=== PATIENT | female | born 1970 | race Caucasian/White ===

== ENCOUNTER 2022-11-14 14:10 | Emergency (ER) | payer OTHER, SELFPAY ==
[2022-11-14 14:24] VITALS: BP 126/84; PULSE 90; RESP 18; TEMP 36.4; O2SAT 94; BMI 34.9
--- NOTE | 2022-11-14 14:24 | ED.EXTPRO ---
HPI - Extremity Problem General Chief complaint: General Medical <TAN Crawford Last Filed: 11/14/22 14:27> Stated complaint: Infection in finger <TAN Crawford Last Filed: 11/14/22 14:27> Time Seen by Provider: 11/14/22 15:15 <TAN Crawford Last Filed: 11/14/22 14:27> History of Present Illness HPI Narrative: patient complains of redness pain and swelling to the tip of the left ring finger over several days, no fever no injury <TAN Molina Last Filed: 11/15/22 09:56> Related Data Home medications: Previous Rx's Medication Instructions Recorded cephalexin 500 mg tablet 500 mg PO QID 7 days #28 tabs 11/14/22 doxycycline hyclate 100 mg capsule 100 mg PO BID 7 days #14 caps 11/14/22 fluconazole 150 mg tablet 150 mg PO ONCE 1 day #1 tab 11/14/22 (Diflucan) <TAN Crawford Last Filed: 11/14/22 14:27> Allergies/Adverse reactions: Allergies Allergy/AdvReac Type Severity Reaction Status Date / Time codeine Allergy Intermediate Vomiting Verified 11/14/22 14:24 <TAN Crawford Last Filed: 11/14/22 14:27> Review of Systems Review of Systems: Positive for left ring her finger pain and swelling Negatives no fever no chills no dizziness no weakness no joint pain no joint swelling no numbness no tingling no paresthesias, no other skin rashes <TAN Molina Last Filed: 11/15/22 09:56> Yes all other systems are reviewed and are negative <TAN Molina Last Filed: 11/15/22 09:56> [facility] Past Medical History Source: nursing notes reviewed <TAN Molina Last Filed: 11/15/22 09:56> Social History Social History: Social History Advance Directives: No Advance Directives Information Provided: Yes <TAN Crawford Last Filed: 11/14/22 14:27> Physical Exam Vital Signs: Vital Signs: Last Vital Signs Temp 97.6 F 11/14/22 14:24 Pulse 90 11/14/22 14:24 Resp 18 11/14/22 14:24 BP 126/84 11/14/22 14:24 Pulse Ox 94 11/14/22 14:24 O2 Del Method 11/14/22 14:24 BMI result Body Mass Index 34.9 <TAN Crawford Last Filed: 11/14/22 14:27> Vital Signs: Last Vital Signs Temp 97.6 F 11/14/22 14:24 Pulse 90 11/14/22 14:24 Resp 18 11/14/22 14:24 BP 126/84 11/14/22 14:24 Pulse Ox 94 11/14/22 14:24 O2 Del Method 11/14/22 14:24 BMI result Body Mass Index 34.9 <TAN Molina Last Filed: 11/15/22 09:56> general appearance comfortable no distress Head is normocephalic atraumatic Neck is supple Respiratory no distress Extremities full range of motion x4 Left ring finger had a paronychia on the medial aspect of the left 4th finger with redness swelling fluctuance around the nail bed, the joints had full range of motion there was no impairment of any tendon function there was neurovascular intact <TAN Molina Last Filed: 11/15/22 09:56> Course Course Course Narrative: RME- 14:30PM - 51yoF presenting to the ED c c/o left ring finger paronychia that started approximately 3 days ago. Denies any other symptoms related to this. Plan: Patient will need I and D and antibiotics. She did not want to do it in triage she went to topical lidocaine <TAN Crawford Last Filed: 11/14/22 14:27> RME- 14:30PM - 51yoF presenting to the ED c c/o left ring finger paronychia that started approximately 3 days ago. Denies any other symptoms related to this. Plan: Patient will need I and D and antibiotics. She did not want to do it in triage she went to topical lidocaine patient with left ring finger paronychia no systemic symptoms no fever Procedure note digital block was done with 6 cc of 1% lidocaine with good anesthesia Left 4th finger paronychia was cleansed with Betadine Nail bed was lifted with discharge of a good quantity of pus Bandage was applied no packing was placed <TAN Molina Last Filed: 11/15/22 09:56> Medications Administered Discontinued Medications Generic Name Dose Route Start Last Admin Trade Name Jeanine PRN Reason Stop Dose Admin Cephalexin HCl 500 mg 11/14/22 16:33 11/14/22 16:37 Cephalexin 500 Mg Capsule PO 11/14/22 16:34 500 mg ONCE ONE Administration Doxycycline Monohydrate 100 mg 11/14/22 15:18 11/14/22 15:23 Doxycycline Monohydrate 100 Mg Capsule PO 11/14/22 15:19 100 mg ONCE ONE Administration Lidocaine HCl 2 ml 11/14/22 15:12 11/14/22 15:25 Lidocaine Hcl 1 % Mpf 2 Ml Vial INFILTRATI 11/14/22 15:13 2 ml ONCE ONE Administration Lidocaine HCl 2 ml 11/14/22 15:16 11/14/22 15:25 Lidocaine Hcl 1 % Mpf 2 Ml Vial INFILTRATI 11/14/22 15:17 2 ml ONCE ONE Administration Lidocaine HCl 2 ml 11/14/22 15:16 11/14/22 15:25 Lidocaine Hcl 1 % Mpf 2 Ml Vial INFILTRATI 11/14/22 15:17 2 ml ONCE ONE Administration Lidocaine HCl 2 ml 11/14/22 15:16 11/14/22 15:25 Lidocaine Hcl 1 % Mpf 2 Ml Vial INFILTRATI 11/14/22 15:17 2 ml ONCE ONE Administration Lidocaine HCl 2 ml 11/14/22 15:16 11/14/22 15:25 Lidocaine Hcl 1 % Mpf 2 Ml Vial INFILTRATI 11/14/22 15:17 2 ml ONCE ONE Administration <TAN Crawford - Last Filed: 11/14/22 14:27> Medications Administered Discontinued Medications Generic Name Dose Route Start Last Admin Trade Name Jeanine PRN Reason Stop Dose Admin Cephalexin HCl 500 mg 11/14/22 16:33 11/14/22 16:37 Cephalexin 500 Mg Capsule PO 11/14/22 16:34 500 mg ONCE ONE Administration Doxycycline Monohydrate 100 mg 11/14/22 15:18 11/14/22 15:23 Doxycycline Monohydrate 100 Mg Capsule PO 11/14/22 15:19 100 mg ONCE ONE Administration Lidocaine HCl 2 ml 11/14/22 15:12 11/14/22 15:25 Lidocaine Hcl 1 % Mpf 2 Ml Vial INFILTRATI 11/14/22 15:13 2 ml ONCE ONE Administration Lidocaine HCl 2 ml 11/14/22 15:16 11/14/22 15:25 Lidocaine Hcl 1 % Mpf 2 Ml Vial INFILTRATI 11/14/22 15:17 2 ml ONCE ONE Administration Lidocaine HCl 2 ml 11/14/22 15:16 11/14/22 15:25 Lidocaine Hcl 1 % Mpf 2 Ml Vial INFILTRATI 11/14/22 15:17 2 ml ONCE ONE Administration Lidocaine HCl 2 ml 11/14/22 15:16 11/14/22 15:25 Lidocaine Hcl 1 % Mpf 2 Ml Vial INFILTRATI 11/14/22 15:17 2 ml ONCE ONE Administration Lidocaine HCl 2 ml 11/14/22 15:16 11/14/22 15:25 Lidocaine Hcl 1 % Mpf 2 Ml Vial INFILTRATI 11/14/22 15:17 2 ml ONCE ONE Administration <TAN Molina - Last Filed: 11/15/22 09:56> Discharge Plan Discharge Clinical Impression: Paronychia of finger <TAN Crawford Last Filed: 11/14/22 14:27> Patient Disposition: Home, Self-Care <TAN Crawford - Last Filed: 11/14/22 14:27> Additional Instructions: we drained the pus from the infection It is okay to soak it in Epsom salts or warm water, change the bandage twice a day Take the antibiotics as directed and it is a good idea to take probiotics with the antibiotic to prevent antibiotic associated diarrhea Return any time for spreading redness, worse pain and swelling, red stripe up the arm, any worse condition or concerns <TAN Crawford Last Filed: 11/14/22 14:27> Prescriptions: New cephalexin 500 mg tablet 500 mg PO QID 7 Days Qty: 28 0RF doxycycline hyclate 100 mg capsule 100 mg PO BID 7 Days Qty: 14 0RF fluconazole [Diflucan] 150 mg tablet 150 mg PO ONCE 1 Days Qty: 1 0RF Rx Instructions: use if needed for yeast infection <TAN Crawford Last Filed: 11/14/22 14:27> Interventions: ED Discharge Assessment Last Done: 11/14/22 16:41 <TAN Crawford Last Filed: 11/14/22 14:27> Discharge Date/Time: 11/14/22 16:41 <TAN Crawford - Last Filed: 11/14/22 14:27>
[2022-11-14] MEDS: Doxycycline Monohydrate 100 MG CAPSULE PO (15:23)
[2022-11-14] MEDS: Lidocaine HCl 1 % MPF 2 ML VIAL INFILTRATI ×5 (15:25)
--- NOTE | 2022-11-14 16:32 | PC.NURSE ---
PA performed drainage of infection. pt tolerated it well. put a non stick dressing on and gave her sahara gema.
[2022-11-14] MEDS: cephALEXin 500 MG CAPSULE PO (16:37)
== END 2022-11-14 16:41 | disposition home or self-care (01) ==
PROVIDERS: Emergency Provider Emergency Medicine; PCP Family Medicine
DX: L03.012 Cellulitis of left finger (principal)
CPT/HCPCS: 10060; 99283; 99284

== ENCOUNTER → 2024-05-23 07:47 | Outpatient (BNVA) | payer OTHER, SELFPAY | PROVIDERS: PCP Family Medicine; Visit Provider Physician Assistant Surgical ==

== ENCOUNTER 2024-07-17 08:00 | Outpatient (AMB) | payer OTHER, SELFPAY ==
--- NOTE | 2024-07-17 08:14 | MHC.OFFVISWM ---
VS Expanded 07/17/24 08:30 Height 5 ft 1 in Weight 197 lb 6 oz BMI 37.3 Body Fat % 41.5 Body Fat Mass 82 Fat Free Mass 115.6 Visceral Fat Rating 12 Body Water % 41.6 Body Water Mass 82.2 Basal Metabolic Rate/Score 1,595 Intake Visit Reasons: TV [employer] SWL vs MWL BMI 37.3 Allergies codeine Allergy (Intermediate, Verified 07/17/24 08:15) Vomiting Medication List - Last Reconciled 07/17/24 by Charly Wallaec MD amlodipine 10 mg PO DAILY atorvastatin 10 mg PO DAILY CPAP (CPAP Machine/Device) As directed escitalopram oxalate 20 mg PO DAILY losartan 25 mg PO DAILY omeprazole 20 mg PO DAILY HPI HPI TV [employer] SWL vs MWL BMI 37.3: Details: Start time: 8.08am, End time: 8.53am ?I spent 40 minutes speaking with the patient on the phone plus an additional 5 minutes reviewing and updating records for a total of 45 minutes HPI Comments Details: Previous weight loss efforts: Weight Watchers, Sebastian Naidu, [employer] soup, self diets Wakes up: 6am, sleeps: 11pm Breakfast: skips Lunch: 1pm (peanut butter crackers, pizza) Dinner: 8pm ([employer], Fast food) Snacks: 10am (peanut butter crackers), 4pm (candy bar), occ ice cream/popcorn after dinner Exercise: Mini treadmill at work (30min/day) Fluids: Coffee 40-50oz/d (black), tea: occasionally, soda: Coke regular, juice: none, ETOH: rarely PFSH Medical History (Updated 07/17/24 @ 08:32 by Charly Wallace MD) Anxiety Depression DJD (degenerative joint disease) GERD (gastroesophageal reflux disease) Prediabetes Hyperlipidemia Sleep apnea treated with continuous positive airway pressure (CPAP) Hypertension Obesity Surgical History (Updated 05/23/24 @ 10:02 by Janay Kyle CMA) Hx of colonoscopy History of back surgery Family History (Updated 05/23/24 @ 10:04 by Janay Kyle CMA) Mother FH: kidney cancer Social History (Updated 05/23/24 @ 10:03 by Janay Kyle CMA) Alcohol intake: current Alcohol intake frequency: holidays/special occasions only Alcohol type: wine Patient Tobacco Use Status: Current everyday Tobacco user Cigarettes Per Day: 10 Telehealth Telehealth Telehealth Platform: Telephone Location of provider rendering services: practice address Location of patient: address on file Patient Identification confirmed using: Name, : Yes Telehealth method: voice only Patient verbally consented to treatment: Yes Patient verbally consented to billing insurance company: Yes Patient informed of any privacy concerns related to visit: Yes Minutes spent on Phone/Video with Pt.: 45 Assessment & Plan Assessment & Plan (1) Obesity: Code(s): E66.9 - Obesity, unspecified Category: Medical Qualifiers: Obesity type: due to excess calories Obesity classification: adult class 2 (BMI 35 - 39.9) Serious obesity comorbidity presence: with serious comorbidity Body mass index: BMI 37.0-37.9 Qualified Code(s): E66.01 - Morbid (severe) obesity due to excess calories; Z68.37 - Body mass index [BMI] 37.0-37.9, adult Plan: 1.? Plan for lap sleeve gastrectomy. If diaphragmatic or ventral hernias are present at time of surgery, these will be repaired laparoscopically as well. Risks and complications include possible conversion to an open procedure, anastomotic leak, bleeding requiring transfusion, small bowel obstruction, , DVT and pulmonary embolism, cardiac, or pulmonary complications, as long term acute care registered nurse complications such as anastomotic ulcer, insufficient weight loss and vitamin deficiencies. I emphasized the importance of close follow-up, adherence to instructions and good communication. 2. You will receive a link of our software tab to generate an individualized nutritional and exercise plan specific for you. Please send me a screenshot of the plans you will generate Meal to include lean meat (beef, fish, pork, turkey, chicken), or cook islander yogurt, or egg whites, or beans with a salad with olive oil and fruits (berries, pears, apples, kiwi). Avoid salt, breads, potatoes, rice, pasta, desserts. ?3. If you choose shakes, each shake would be drunk slowly, like coffee in a period of 2 hours. ?4. If you choose bars, cut each bar in 4 pieces and eat each piece in 30min ?to make each bar last 2 hours. ?5. I emphasized the importance of measuring accurately the food portion and measure it when serving the food in plate ?6. The meal portions include a specific number of forks of meat and salad. You always eat the meat portion but you can replace up to half of salad/vegetables portion with rice, potatoes or pasta, or a fruit ?if you like. The less you do it the better weight loss will be. ?7. One full-size fork is what it can be scooped on the fork without falling aside and not what can be bit with the fork. Use regular forks like those you find in a typical restaurant. ?8.? Please send me weight measurements as soon as possible and then once a week. Always include your diet and exercise plan. 9. The best choice would be to purchase a stationary bike, elliptical or treadmill at home that can track calories. Let me know if you do so I can give you an exercise plan. ?10.?It is important of avoiding and for at least 18 months postoperatively and has been discussed at the infosession. ?11. Goal is to lose at least 1.5-2lbs per week ?12. Goal to lose 10% of your weight before surgery, which is about 20lbs. Ultimate weight goal: 177lbs before surgery 13. Please follow the diet plan exactly without any change. If you don't like something about the plan or you feel hungry you need to communicate with me so I can help you revise the plan. You should not change the plan yourself. 14. To be scheduled for EGD due to history of GERD. The possibility of biopsies was discussed. Patient needs to avoid use of NSAIDs and aspirin for 1 week prior to EGD. Risks of perforation and bleeding was discussed with the patient. This will be an outpatient procedure with IV sedation. Orders: Orders IRON PROFILE Today E66.9 - Obesity, unspecified, E78.5 - Hyperlipidemia, unspecified, G47.30 - Sleep apnea, unspecified, I10 - Essential (primary) hypertension, K21.9 - Gastro-esophageal reflux disease without esophagitis, R73.03 - Prediabetes Comprehensive Met. Panel Today E66.9 - Obesity, unspecified, E78.5 - Hyperlipidemia, unspecified, G47.30 - Sleep apnea, unspecified, I10 - Essential (primary) hypertension, K21.9 - Gastro-esophageal reflux disease without esophagitis, R73.03 - Prediabetes Vitamin B12 and Folate Today E66.9 - Obesity, unspecified, E78.5 - Hyperlipidemia, unspecified, G47.30 - Sleep apnea, unspecified, I10 - Essential (primary) hypertension, K21.9 - Gastro-esophageal reflux disease without esophagitis, R73.03 - Prediabetes Zinc Today E66.9 - Obesity, unspecified, E78.5 - Hyperlipidemia, unspecified, G47.30 - Sleep apnea, unspecified, I10 - Essential (primary) hypertension, K21.9 - Gastro-esophageal reflux disease without esophagitis, R73.03 - Prediabetes Vitamin B1 Today E66.9 - Obesity, unspecified, E78.5 - Hyperlipidemia, unspecified, G47.30 - Sleep apnea, unspecified, I10 - Essential (primary) hypertension, K21.9 - Gastro-esophageal reflux disease without esophagitis, R73.03 - Prediabetes Vitamin A Today E66.9 - Obesity, unspecified, E78.5 - Hyperlipidemia, unspecified, G47.30 - Sleep apnea, unspecified, I10 - Essential (primary) hypertension, K21.9 - Gastro-esophageal reflux disease without esophagitis, R73.03 - Prediabetes US abdomen comp w elastography Today E66.9 - Obesity, unspecified, E78.5 - Hyperlipidemia, unspecified, G47.30 - Sleep apnea, unspecified, I10 - Essential (primary) hypertension, K21.9 - Gastro-esophageal reflux disease without esophagitis, R73.03 - Prediabetes XR chest 2V Today E66.9 - Obesity, unspecified, E78.5 - Hyperlipidemia, unspecified, G47.30 - Sleep apnea, unspecified, I10 - Essential (primary) hypertension, K21.9 - Gastro-esophageal reflux disease without esophagitis, R73.03 - Prediabetes ECG 12 lead EKG Today E66.9 - Obesity, unspecified, E78.5 - Hyperlipidemia, unspecified, G47.30 - Sleep apnea, unspecified, I10 - Essential (primary) hypertension, K21.9 - Gastro-esophageal reflux disease without esophagitis, R73.03 - Prediabetes Insulin Today E66.9 - Obesity, unspecified, E78.5 - Hyperlipidemia, unspecified, G47.30 - Sleep apnea, unspecified, I10 - Essential (primary) hypertension, K21.9 - Gastro-esophageal reflux disease without esophagitis, R73.03 - Prediabetes Hemoglobin A1c Today E66.9 - Obesity, unspecified, E78.5 - Hyperlipidemia, unspecified, G47.30 - Sleep apnea, unspecified, I10 - Essential (primary) hypertension, K21.9 - Gastro-esophageal reflux disease without esophagitis, R73.03 - Prediabetes H Pylori Breath Test Today E66.9 - Obesity, unspecified, E78.5 - Hyperlipidemia, unspecified, G47.30 - Sleep apnea, unspecified, I10 - Essential (primary) hypertension, K21.9 - Gastro-esophageal reflux disease without esophagitis, R73.03 - Prediabetes Complete Blood Count Auto Diff Today E66.9 - Obesity, unspecified, E78.5 - Hyperlipidemia, unspecified, G47.30 - Sleep apnea, unspecified, I10 - Essential (primary) hypertension, K21.9 - Gastro-esophageal reflux disease without esophagitis, R73.03 - Prediabetes Lipid Panel Today E66.9 - Obesity, unspecified, E78.5 - Hyperlipidemia, unspecified, G47.30 - Sleep apnea, unspecified, I10 - Essential (primary) hypertension, K21.9 - Gastro-esophageal reflux disease without esophagitis, R73.03 - Prediabetes C Reactive Protein Today E66.9 - Obesity, unspecified, E78.5 - Hyperlipidemia, unspecified, G47.30 - Sleep apnea, unspecified, I10 - Essential (primary) hypertension, K21.9 - Gastro-esophageal reflux disease without esophagitis, R73.03 - Prediabetes TSH reflex Free T4 Today E66.9 - Obesity, unspecified, E78.5 - Hyperlipidemia, unspecified, G47.30 - Sleep apnea, unspecified, I10 - Essential (primary) hypertension, K21.9 - Gastro-esophageal reflux disease without esophagitis, R73.03 - Prediabetes Ferritin Today E66.9 - Obesity, unspecified, E78.5 - Hyperlipidemia, unspecified, G47.30 - Sleep apnea, unspecified, I10 - Essential (primary) hypertension, K21.9 - Gastro-esophageal reflux disease without esophagitis, R73.03 - Prediabetes Vitamin D 25-OH Total Today E66.9 - Obesity, unspecified, E78.5 - Hyperlipidemia, unspecified, G47.30 - Sleep apnea, unspecified, I10 - Essential (primary) hypertension, K21.9 - Gastro-esophageal reflux disease without esophagitis, R73.03 - Prediabetes FL upper GI w air Today E66.9 - Obesity, unspecified, E78.5 - Hyperlipidemia, unspecified, G47.30 - Sleep apnea, unspecified, I10 - Essential (primary) hypertension, K21.9 - Gastro-esophageal reflux disease without esophagitis, R73.03 - Prediabetes Referrals Nutrition/Dietitian Referral E66.9 - Obesity, unspecified, E78.5 - Hyperlipidemia, unspecified, G47.30 - Sleep apnea, unspecified, I10 - Essential (primary) hypertension, K21.9 - Gastro-esophageal reflux disease without esophagitis, R73.03 - Prediabetes Behavioral Health Referral E66.9 - Obesity, unspecified, E78.5 - Hyperlipidemia, unspecified, G47.30 - Sleep apnea, unspecified, I10 - Essential (primary) hypertension, K21.9 - Gastro-esophageal reflux disease without esophagitis, R73.03 - Prediabetes
[2024-07-17 08:30] VITALS: BMI 37.3
== END 2024-07-17 08:53 | disposition home or self-care (01) ==
LOC: HO.HBS 08:00
PROVIDERS: PCP Family Medicine; Visit Provider Surgery
DX: E66.01 Morbid (severe) obesity due to excess calories (principal); Z68.37 Body mass index [BMI] 37.0-37.9, adult
CPT/HCPCS: 99204

== ENCOUNTER → 2024-07-17 08:00 | Outpatient (BNVA) | payer OTHER, SELFPAY | PROVIDERS: PCP Family Medicine; Visit Provider Surgery ==

== ENCOUNTER 2024-07-24 08:08 | Outpatient (REF) | payer OTHER, SELFPAY ==
--- NOTE | ~2024-07-24 | XR_ITS ---
EXAMINATION: XR CHEST, 2 VIEWS CLINICAL INFORMATION: Obesity. Preoperative. COMPARISON: None. TECHNIQUE: PA and lateral views of the chest were obtained. FINDINGS: Lungs are clear. No consolidation, pneumothorax, or pleural effusion. Cardiac and mediastinal contours are normal. Pulmonary vasculature is unremarkable. Trachea is midline. Osseous structures are unremarkable. XR/XR chest 2V IMPRESSION: Normal chest radiographs. Electronically signed by: Ranjit Singh MD 08/14/2024 07:36 PM EDT
--- NOTE | ~2024-07-24 | US_ITS ---
EXAMINATION: US COMPLETE ABDOMEN WITH LIVER ELASTOGRAPHY CLINICAL INFORMATION: Obesity. COMPARISON: None available. TECHNIQUE: Real-time imaging of the abdominal viscera. Noninvasive ultrasound liver fibrosis assessment is performed using Javy ElastPQ point quantification shear wave elastography (pSWE) with a C5-2 MHz transducer. Multiple elastography samples are obtained. FINDINGS: PANCREAS: Normal. The visualized pancreatic head and body are normal in appearance. The remainder of the pancreas is obscured from visualization by the overlying bowel gas. ABDOMINAL AORTA: The proximal, middle, and distal aortic segments are normal in caliber. INFERIOR VENA CAVA: Visualized portions are normal. LIVER: The liver demonstrates increased echogenicity consistent with steatosis. There is focal fatty sparing near the gallbladder. The liver demonstrates normal size, contour and echogenicity. No focal lesion or intrahepatic biliary duct dilatation. The right lobe measures 14.4 cm in length. The left lobe measures 9.2 cm in length. Portal flow is towards the liver (hepatopetal). Shear wave liver elastography median stiffness is 1.15 m/s (reference: normal median stiffness is 1.3 m/s or less). IQR/median stiffness to assess sampling precision is 0.14 (reference: good quality data set is IQR/median stiffness of 0.15 or less). GALLBLADDER: Normal. The gallbladder is physiologically distended without evidence of stones, sludge, polyps, wall thickening or pericholecystic fluid. COMMON BILE DUCT: Normal in caliber measuring 0.5 cm in diameter. RIGHT KIDNEY: Normal. No hydronephrosis. No renal calculi or focal parenchymal lesions. The kidney measures 11.4 cm in maximum dimension. LEFT KIDNEY: Normal. No hydronephrosis. No renal calculi or focal parenchymal lesions. The kidney measures 11.1 cm in maximum dimension. SPLEEN: Normal. The spleen measures 10.9 cm in maximum dimension. FREE FLUID: None. US/US abdomen comp w elastography IMPRESSION: 1. Echogenic liver suggesting steatosis. 2. Liver Elastography: Measurements are consistent with a high probability of normal liver stiffness. REFERENCE: Society of Radiologists in Ultrasound Liver Stiffness Thresholds (2019): LIVER STIFFNESS THRESHOLDS: *Liver Stiffness equal or less than 1.3 m/s: High probability of being normal. *Liver Stiffness less than 1.7 m/s: In the absence of other known clinical signs, rules out compensated advanced chronic liver disease. *Liver Stiffness 1.7-2.1 m/s: Suggestive of compensated advanced chronic liver disease but need further test for confirmation. *Liver Stiffness over 2.1 m/s: Rules in compensated advanced chronic liver disease. *Liver Stiffness over 2.4 m/s: Suggestive of clinically significant portal hypertension. QUALITY OF DATA SET: *IQR/Median value equal or less than 0.15 implies a quality data set. *IQR/Median value over 0.15 implies a poor quality data set. SIGNIFICANT CHANGE FROM PRIOR EXAM: Significant change if liver stiffness measurement is 10% or greater from prior exam. OTHER CONSIDERATIONS: The stage of liver fibrosis may be overestimated in the setting of acute hepatitis, liver inflammation, elevated liver function tests, hepatic vascular congestion, obstructive cholestasis, non-fasting state, and infiltrative diseases such as amyloidosis and lymphoma. In some patients with NAFLD, the liver stiffness thresholds for compensated advanced chronic liver disease may be lower. In causes other than viral hepatitis and NAFLD, liver stiffness thresholds are not well established. Electronically signed by: Talha Baker MD 08/03/2024 09:55 PM EDT
--- NOTE | 2024-07-24 08:50 | ECG_ITS ---
Test Reason : OBESITY Blood Pressure : / mmHG Vent. Rate : 058 BPM Atrial Rate : 058 BPM P-R Int : 220 ms QRS Dur : 094 ms QT Int : 426 ms P-R-T Axes : 072 035 055 degrees QTc Int : 418 ms Sinus bradycardia with 1st degree A-V block Otherwise normal ECG No previous ECGs available Referred By: Charly Wallace Electronically Signed By:KUN ANGUIANO
== END 2024-07-24 08:09 | disposition home or self-care (01) ==
LOC: HO.US 08:08
PROVIDERS: PCP Family Medicine; Visit Provider Surgery
DX: E66.9 Obesity, unspecified (principal); K21.9 Gastro-esophageal reflux disease without esophagitis; R73.03 Prediabetes; E78.5 Hyperlipidemia, unspecified; I10 Essential (primary) hypertension; G47.30 Sleep apnea, unspecified
CPT/HCPCS: 71046; 76700; 76981; 93005

== ENCOUNTER 2024-08-05 10:16 | Outpatient (REF) | payer OTHER, SELFPAY ==
[2024-08-05 10:49] LABS: MANUAL DIFF FLAG NO
[2024-08-05 11:11] LABS: Basophils Absolute Auto 0.1 X10*3/uL (0.0-0.2); Eosinophils Absolute Auto 0.1 X10*3/uL (0.0-0.4); Eosinophils Percent Auto 2.2 % (0-4); Hematocrit 41.3 % (37.0-47.0); Hemoglobin 14.3 g/dl (12.0-16.0); Imm Gran Abs Auto 0.02 X10*3/uL (0.00-0.03); Imm Gran Pct Auto 0.3 % (0.0-0.4); Lymphocytes Absolute Auto 1.9 X10*3/uL (1.2-4.9); Lymphocytes Percent Auto 32.2 % (20-40); Mean Corpuscular HGB Conc 34.6 g/dl (31.0-35.0); Mean Corpuscular Hemoglobin 31.6 pg (27.0-33.0); Mean Corpuscular Volume 91.2 fL (80.0-98.0); Mean Platelet Volume 11.3 fL (9.4-12.3); Monocytes Absolute Auto 0.3 X10*3/uL (0.1-1.2); Monocytes Percent Auto 4.9 % (2-11); Neutrophils Absolute Auto 3.6 x10*3/uL (2.0-8.3); Neutrophils Percent Auto 59.4 % (45-73); Platelet Count 191 X10*3/uL (160-400); Red Blood Count 4.53 X10*6/uL (4.20-5.50); Red Cell Distribution Width 12.9 % (11.0-16.0)
[2024-08-05 11:35] LABS: Estimated Average Glucose 111 mg/dL; Hemoglobin A1c % 5.5 % (<6.0)
[2024-08-05 12:00] LABS: Alanine Aminotransferase 23 U/L (0-31); Albumin Level 4.4 g/dL (3.5-5.0); Alkaline Phosphatase 108 U/L (39-117); Anion Gap 12 (12-20); Aspartate Amino Transferase 15 U/L (5-31); Bilirubin Total 0.3 mg/dL (0.0-1.0); Blood Urea Nitrogen 13 mg/dL (9-16); C Reactive Protein 0.14 mg/dL (< or = 0.50); Calcium 9.6 mg/dL (8.4-10.2); Carbon Dioxide 26 mmol/L (22-29); Chloride 108 mmol/L (96-108); Cholesterol 159 mg/dL (<200); Estimated Glomerular Filt Rate > 60; Glucose Random 115 mg/dL (60-115); HDL Cholesterol 42 mg/dL (>40); Iron 50 mcg/dL (30-160); LDL Cholesterol Calculated 102 mg/dL (<100); Percent Iron Saturation 20 % (15-50); Potassium 4.4 mmol/L (3.3-5.1); Sodium 142 mmol/L (135-145); Total Iron Binding Capacity 253 mcg/dL (228-428); Total Protein 7.1 g/dL (6.5-8.0); Triglycerides 76 mg/dL (<150); Unsaturated Iron Binding 203 ug/dL
[2024-08-05 12:08] LABS: Ferritin 114 ng/mL (10-250); Insulin 20 uU/mL (2-29); TSH reflex Free T4 0.83 uIU/mL (0.32-4.0); Vitamin D 25-OH Total 40.9 ng/mL (>30)
[2024-08-05 12:17] LABS: Folate 12.9 ng/mL (> or = 4.0); Vitamin B12 714 pg/mL (200-900)
[2024-08-10 00:34] LABS: Vitamin A 57 mcg/dL (38-98)
[2024-08-10 16:39] LABS: Vitamin B1 11 nmol/L (8-30)
== END 2024-08-05 10:17 | disposition home or self-care (01) ==
LOC: HO.LAB 10:16
PROVIDERS: PCP Family Medicine; Visit Provider Surgery
DX: E66.9 Obesity, unspecified (principal); I10 Essential (primary) hypertension; G47.30 Sleep apnea, unspecified; E78.5 Hyperlipidemia, unspecified; R73.03 Prediabetes; K21.9 Gastro-esophageal reflux disease without esophagitis
CPT/HCPCS: 36415; 80053; 80061; 82306; 82607; 82728; 82746; 83036; 83525; 83540; 84425; 84443; 84590; 84630; 85025; 86140

== ENCOUNTER → 2024-08-14 10:05 | Outpatient (BNVA) | payer OTHER, SELFPAY | PROVIDERS: PCP Family Medicine; Visit Provider Counselor Mental Health ==

== ENCOUNTER → 2024-08-14 10:05 | Outpatient (AMB) | payer OTHER, SELFPAY ==
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
== END ==
LOC: HO.HBST 10:05
PROVIDERS: PCP Family Medicine; Visit Provider Counselor Mental Health
DX: F41.9 Anxiety disorder, unspecified (principal); F32.A Depression, unspecified
CPT/HCPCS: 90791

== ENCOUNTER → 2024-08-30 08:10 | Outpatient (AMB) | payer OTHER, SELFPAY ==
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
== END ==
LOC: HO.HBST 08:10
PROVIDERS: PCP Family Medicine; Visit Provider Counselor Mental Health
DX: F41.9 Anxiety disorder, unspecified (principal); F32.A Depression, unspecified
CPT/HCPCS: 90837

== ENCOUNTER → 2024-08-30 08:10 | Outpatient (BNVA) | payer OTHER, SELFPAY | PROVIDERS: PCP Family Medicine; Visit Provider Counselor Mental Health ==

== ENCOUNTER 2024-08-31 10:30 | Outpatient (AMB) | payer OTHER, SELFPAY ==
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
[2024-08-31 10:38] VITALS: BMI 35.0
== END 2024-08-31 11:07 | disposition home or self-care (01) ==
LOC: HO.HBS 10:44
PROVIDERS: PCP Family Medicine; Visit Provider Physician Assistant Surgical
DX: E66.01 Morbid (severe) obesity due to excess calories (principal); Z68.37 Body mass index [BMI] 37.0-37.9, adult
CPT/HCPCS: 99213

== ENCOUNTER → 2024-08-31 10:30 | Outpatient (BNVA) | payer OTHER, SELFPAY | PROVIDERS: PCP Family Medicine; Visit Provider Physician Assistant Surgical ==

== ENCOUNTER 2024-09-05 09:07 | Day surgery (SDC) | payer OTHER, SELFPAY ==
--- NOTE | 2024-09-01 13:40 | P.CONAN_ITS ---
Documented by User: Guera Nowak NP 09/01/24 13:40 HPI - Anesthesia Eval Consult details Narrative: 53yo F for Upper Endoscopy PMFSH Active Problems Active Problems: All Active Problems Anxiety (Acute) Depression (Acute) DJD (degenerative joint disease) (Acute) GERD (gastroesophageal reflux disease) (Acute) Prediabetes (Acute) Hyperlipidemia (Acute) Sleep apnea treated with continuous positive airway pressure (CPAP) (Acute) Hypertension (Acute) Obesity (Acute) Past Medical History Medical History Anxiety Depression DJD (degenerative joint disease) GERD (gastroesophageal reflux disease) Prediabetes Hyperlipidemia Sleep apnea treated with continuous positive airway pressure (CPAP) Hypertension Obesity Family History Family History Mother FH: kidney cancer Surgical History Surgical History Hx of colonoscopy History of back surgery Social History Social History Alcohol intake: current Alcohol intake frequency: does not drink Alcohol type: wine Patient Tobacco Use Status: Current everyday Tobacco user Tobacco use type: Cigarette and Smokeless Tobacco Cigarettes Per Day: 2 Smoked in Last 30 Days: Yes Second Hand Smoke Exposure: No Use of substances other than those prescribed or required for medical reasons: Yes Substance Use Frequency: Daily Have you been hit, kicked, punched, or otherwise hurt by someone within the past year? If so, by whom?: No Are you DNR?: No Advance Directives: No Advance Directives Information Provided: Yes Advance Directives on File: No Recently lost weight without trying: No Eating poorly because of decreased appetite: No Nutrition Risks: No Nutritional Risk Patient : No : No Poor oral hygiene: No Meds Allergies Allergy/AdvReac Type Severity Reaction Status Date / Time codeine Allergy Intermediate Vomiting Verified 07/17/24 08:15 Home Medications ?Medication ?Instructions ?Recorded ?Confirmed ?Last Taken ?Type escitalopram oxalate 20 mg tablet 20 mg PO DAILY 05/23/24 09/05/24 Unknown History CPAP (CPAP Machine/Device) 06/19/24 09/05/24 Unknown History amlodipine 10 mg tablet 10 mg PO DAILY 06/19/24 09/05/24 Unknown History atorvastatin 10 mg tablet 10 mg PO DAILY 06/19/24 09/05/24 Unknown History losartan 25 mg tablet 25 mg PO DAILY 06/19/24 09/05/24 Unknown History omeprazole 20 mg capsule,delayed 20 mg PO DAILY 06/19/24 09/05/24 Unknown History release Assessment and Plan Assessment Anesthesia Assessment: Chart Reviewed Documented by User: Rajani Reardon MD 09/05/24 11:02 [facility] Past Medical History Medical History Anxiety Depression DJD (degenerative joint disease) GERD (gastroesophageal reflux disease) Prediabetes Hyperlipidemia Sleep apnea treated with continuous positive airway pressure (CPAP) Hypertension Obesity Family History Family History Mother FH: kidney cancer Family history of problems with anesthesia: No Surgical History Surgical History Hx of colonoscopy History of back surgery History of Problems with Anesthesia: No Social History Social History Alcohol intake: current Alcohol intake frequency: does not drink Alcohol type: wine Patient Tobacco Use Status: Current everyday Tobacco user Tobacco use type: Cigarette and Smokeless Tobacco Cigarettes Per Day: 2 Smoked in Last 30 Days: Yes Second Hand Smoke Exposure: No Use of substances other than those prescribed or required for medical reasons: Yes Substance Use Frequency: Daily Have you been hit, kicked, punched, or otherwise hurt by someone within the past year? If so, by whom?: No Are you DNR?: No Advance Directives: No Advance Directives Information Provided: Yes Advance Directives on File: No Recently lost weight without trying: No Eating poorly because of decreased appetite: No Nutrition Risks: No Nutritional Risk Patient : No : No Poor oral hygiene: No Meds Allergies Allergy/AdvReac Type Severity Reaction Status Date / Time codeine Allergy Intermediate Vomiting Verified 07/17/24 08:15 Home Medications ?Medication ?Instructions ?Recorded ?Confirmed ?Last Taken ?Type escitalopram oxalate 20 mg tablet 20 mg PO DAILY 05/23/24 09/05/24 Unknown History CPAP (CPAP Machine/Device) 06/19/24 09/05/24 Unknown History amlodipine 10 mg tablet 10 mg PO DAILY 06/19/24 09/05/24 Unknown History atorvastatin 10 mg tablet 10 mg PO DAILY 06/19/24 09/05/24 Unknown History losartan 25 mg tablet 25 mg PO DAILY 06/19/24 09/05/24 Unknown History omeprazole 20 mg capsule,delayed 20 mg PO DAILY 06/19/24 09/05/24 Unknown History release Exam Airway Mallampati Class: II TM Dist: >3cm Neck ROM: Full Heart: rrr Assessment and Plan Assessment Anesthesia Assessment: Anesthesia Plan Discussed Final Anesthetic Review Family History of Problems with Anesthesia: No History of Problems with Anesthesia: No NPO: Yes ASA Class: III Final Preanesthetic Review: No Changes in Pt Med Stat, Meds/Allgs Chart Reviewed, Consent Obtained/Reviewed and Anes Risks/Benef Reviewed Patient Risk: Intermediate Procedure Risk: Low Anesthetic Plan Anesthetic Plan: MAC: Disposition: Standard PACU
[2024-09-05 10:04] VITALS: BMI 35.0
[2024-09-05 10:08] VITALS: BP 125/72; PULSE 61; RESP 16; TEMP 37.1; O2SAT 95
[2024-09-05] MEDS: Lactated Ringers 1,000 ML 80 ML IVCONT (10:09)
--- NOTE | 2024-09-05 10:10 | P.HPSUR_ITS ---
Pre-Procedural Eval Section A - 24 Hr Update-Section A only Date of Service: 09/05/24 The patient is an INPATIENT: No The patient has been examined within 24 hours of the surgical procedure. The History & Physical has been completed within 30 days and I have reviewed it.: No Section B - Complete if H&P > 30 days Chief Complaint: Morbid (severe) obesity due to excess calories Details of Present Illness: GERD Relevant Family History (Specify if Yes): No Relevant Social History: None Present Medications: None Medical History: No relevant PMH History of Previous Operations: No relevant previous surgery Allergies: Allergies Allergy/AdvReac Type Severity Reaction Status Date / Time codeine Allergy Intermediate Vomiting Verified 07/17/24 08:15 Review of Systems Sugical H&P ROS: Negative: Constitution, Cardiovascular, Respiratory, Neurological, Psychiatric, Hem-Onc, Allergic/Immunologic, Gastrointestinal, Genitourinary, Musculoskeletal, Integumentary, Endocrine and Eyes/Ears/Nose/Th roat Exam Surgical H&P Exam: Normal: HEENT, Normal: Heart, Normal: Lungs, Normal: Extremities, Normal: Abdomen, Normal: Skin and Normal: Neurological Plan Diagnosis/Plan: Unchanged (EGD to assess etiology of GERD. Risks of bleeding and perforation were discussed with the patient and she is in agreement with the plan.) I have reviewed the history and physical and performed a pertinent physical examination on my patient. No changes have occurred unless specified. Time Spent With Patient Time: Total time managing care of this patient today ____ minutes.
--- NOTE | 2024-09-05 10:16 | PM.OP ---
Brief Operative Note Date of Service: 09/05/24 Pre-op diagnosis: GERD Post-op diagnosis: same Procedure: PROCEDURE DATE: 09/05/2024 PREOPERATIVE DIAGNOSIS: GERD POSTOPERATIVE DIAGNOSIS: ?Same as above. 1) small hiatal hernia PROCEDURE: Jjgrrthj-sjlffv-hwxgamrosvnh with biopsies Surgeon: Javi Wallace M.D.. Ph.D. Correctional Probation Officer: None ? Anesthesia: IV sedation Estimated blood loss: ?Minimal FINDINGS AND PROCEDURE: ? OPERATIVE INDICATIONS: ?The patient is a 53 year old female known to me who is interested in bariatric surgery. The patient has GERD. Based on this information I recommended an upper endoscopy to evaluate the patient's symptoms. Risks and complications of the surgery were discussed with the patient in advance particularly the possibility of perforation or bleeding that may require surgical intervention. The patient understood the risks and was in agreement with the plan. ? PROCEDURE: After informed consent was obtained by the patient, the patient was ?transferred to the Operating Room and was placed in the supine position.? After successful induction of IV sedation, a mouth block was inserted and the patient was placed in the left lateral decubitus position. An upper endoscopy was performed next, the oropharynx and esophagus appeared within the normal limits. There was a small 2cm hiatal hernia. The z-line was smooth. Two biopsies were obtained from the distal esophagus 2-3 cm proximal to the GE junction and two additional biopsies from the GE junction. The stomach was entered and it appeared to be of normal size. There was no gastritis. There was no stricture or ulcer. A biopsy was obtained from the gastric fundus and the antrum. No significant bleeding was noted from any of the biopsy sites. Retroflexion of the scope confirned the presence of a small diaphragmatic hernia. The scope was then advanced into the duodenum which appeared to be normal as well. At that point the duodenum ?and the stomach were decompressed and the scope was withdrawn from the patient's mouth. The patient extubated and was transferred in stable condition to the Recovery Room for further care. I was present and performed all steps of the procedure. There were no residents to assist with this case. Jeffrey Wallace M.D., Ph.D. Surgeon: Charly Wallace MD Anesthesia: MAC Was an Correctional Probation Officer used for this Procedure?: No Estimated blood loss (mL): 0 IV fluids (mL): 400 Urine output (mL): 0 (No Do to record output) Pathology: other (1) antrum x1, 2) fundus x1, 3) GE junction x2, 4) distal esophagus x2) Condition: stable Disposition: PACU
[2024-09-05 10:59] VITALS: BP 126/72; PULSE 90; RESP 16; TEMP 36.6; O2SAT 96
[2024-09-05 11:14] VITALS: BP 128/67; PULSE 76; RESP 16; O2SAT 95
[2024-09-05 11:28] VITALS: BP 137/78; PULSE 71; RESP 16; TEMP 36.4; O2SAT 97
== END 2024-09-05 11:57 | disposition home or self-care (01) ==
PROVIDERS: PCP Family Medicine; Visit Provider Surgery
PROC: 0DJ08ZZ Inspection of Upper Intestinal Tract, Via Natural or Artificial Opening Endoscopic (ICD-10-PCS; CPT 43235; principal; 2024-09-05 10:30)
DX: K21.9 Gastro-esophageal reflux disease without esophagitis (principal); E66.01 Morbid (severe) obesity due to excess calories; Z68.37 Body mass index [BMI] 37.0-37.9, adult; K44.9 Diaphragmatic hernia without obstruction or gangrene; I10 Essential (primary) hypertension; R73.03 Prediabetes; E78.5 Hyperlipidemia, unspecified; G47.33 Obstructive sleep apnea (adult) (pediatric); F32.A Depression, unspecified; F41.9 Anxiety disorder, unspecified; Z79.899 Other long term (current) drug therapy; Z99.89 Dependence on other enabling machines and devices; Z88.5 Allergy status to narcotic agent; F17.210 Nicotine dependence, cigarettes, uncomplicated
CPT/HCPCS: 43239; 88305; 88313; 88342; J1100; J1596; J2003; J2250; J2704

== ENCOUNTER → 2024-09-05 09:07 | Outpatient (BNV) | payer OTHER, SELFPAY | PROVIDERS: PCP Family Medicine; Visit Provider Surgery | DX: K44.9 Diaphragmatic hernia without obstruction or gangrene (principal) | CPT/HCPCS: 43239 ==

== ENCOUNTER → 2024-09-18 14:15 | Outpatient (AMB) | payer OTHER, SELFPAY ==
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
== END ==
LOC: HO.HBST 14:15
PROVIDERS: PCP Family Medicine; Visit Provider Counselor Mental Health
DX: F32.A Depression, unspecified (principal); F41.0 Panic disorder [episodic paroxysmal anxiety]
CPT/HCPCS: 90837

== ENCOUNTER → 2024-09-18 14:15 | Outpatient (BNVA) | payer OTHER, SELFPAY | PROVIDERS: PCP Family Medicine; Visit Provider Counselor Mental Health ==

== ENCOUNTER 2024-10-02 09:17 | Outpatient (REF) | payer OTHER, SELFPAY ==
--- NOTE | ~2024-10-02 | FL_ITS ---
EXAMINATION: XR FLUOROSCOPY UPPER GI WITH AIR CLINICAL INFORMATION: Preoperative evaluation prior to bariatric surgery. COMPARISON: None TECHNIQUE: Fluoroscopic air contrast upper GI examination was performed utilizing standard techniques with thin and thick barium and effervescent granules. Numerous spot images were obtained. FINDINGS: Dual and single contrast images of the esophagus demonstrate normal caliber, contour, and mucosal pattern. No evidence of stricture, mass, or ulcerations identified. Esophageal peristalsis was normal. A very small type I hiatal hernia is present. No significant gastroesophageal reflux was seen during the course of the examination and on reflux views. Dual contrast and single contrast images of the stomach demonstrated normal contour and mucosal pattern without evidence of mass, ulceration, or other abnormality. Contrast freely passed into the gastric antrum and duodenal bulb without delay. Single and air-contrast images of the duodenal bulb demonstrate no abnormality. The duodenal sweep has a normal appearance, course, and mucosal fold appearance. The imaged proximal jejunum has a normal fold pattern and caliber. FLUOROSCOPY TIME: 3 minutes 24 seconds Number of Spot Images: 7 Number of Cine: 13 DOSE AREA PRODUCT: 2042 uGy-m2 (microgray-meter squared) FL/FL upper GI w air IMPRESSION: 1. Very small type I hiatal hernia, otherwise unremarkable upper GI series. This procedure was performed by Stef Howard PA-C, and supervised by Dr. Reyes Electronically signed by: Ranjit Reyes MD 10/03/2024 02:06 PM [facility] [place]
== END 2024-10-02 09:18 | disposition home or self-care (01) ==
LOC: HO.XRAY 09:17
PROVIDERS: PCP Family Medicine; Visit Provider Surgery
DX: K21.9 Gastro-esophageal reflux disease without esophagitis (principal); E66.9 Obesity, unspecified; R73.03 Prediabetes; E78.5 Hyperlipidemia, unspecified; I10 Essential (primary) hypertension; G47.30 Sleep apnea, unspecified
CPT/HCPCS: 74246

== ENCOUNTER → 2024-10-02 09:18 | Outpatient (BNV) | payer OTHER, SELFPAY | PROVIDERS: PCP Family Medicine; Visit Provider Physician Assistant Surgical | DX: K44.9 Diaphragmatic hernia without obstruction or gangrene (principal) | CPT/HCPCS: 74246 ==

== ENCOUNTER 2024-10-06 10:30 | Outpatient (AMB) | payer OTHER, SELFPAY ==
--- NOTE | 2024-10-06 10:34 | A.OFFVIS_ITS ---
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 Weight today is 182.6 lb corresponding to a 15 lb weight loss or 7.5% total body weight loss. She had been following the meal plan although decided to not do the last half bar at night as this did not satisfy her. She was using frozen ready to drink Premier protein shake as a ?ice cream treat? although I think she was doing too much and we discussed that. Her exercise capacitance has been limited lately because of a spasm of her back as listed below. Following the [employer] She is not following the meal plan exactly, she is not eating the bar correctly over the two hours. She is still having trouble with her back and the suggestion was to buy an elliptical Meal plan: [employer] protein bar meal 5 forks protein and 5 forks veg another bar meal 6 forks protein and 6 forks veg 1/4 or 1/2 RTD shake - 3 oz RTD premier protein shake exercise plan: walking outside at lunch break previously had membership to [employer]. Is unable to afford an elliptical and does not have the room in her house. [facility] Medical History Anxiety Depression DJD (degenerative joint disease) GERD (gastroesophageal reflux disease) Prediabetes Hyperlipidemia Sleep apnea treated with continuous positive airway pressure (CPAP) Hypertension Obesity Surgical History Hx of colonoscopy History of back surgery Family History Mother FH: kidney cancer Social History Alcohol intake: current Alcohol intake frequency: does not drink Alcohol type: wine Patient Tobacco Use Status: Current everyday Tobacco user Tobacco use type: Cigarette and Smokeless Tobacco Cigarettes Per Day: 2 Second Hand Smoke Exposure: No Telehealth Telehealth Telehealth Platform: Telephone Location of provider rendering services: practice address Location of patient: address on file Patient Identification confirmed using: Name, : Yes Telehealth method: voice only Patient verbally consented to treatment: Yes Patient verbally consented to billing insurance company: Yes Patient informed of any privacy concerns related to visit: Yes Minutes spent on Phone/Video with Pt.: 15 Assessment & Plan Assessment & Plan (1) Obesity: Code(s): E66.9 - Obesity, unspecified Category: Medical Qualifiers: Obesity type: due to excess calories Obesity classification: adult class 2 (BMI 35 - 39.9) Serious obesity comorbidity presence: with serious comorbidity Body mass index: BMI 37.0-37.9 Qualified Code(s): E66.01 - Morbid (severe) obesity due to excess calories; Z68.37 - Body mass index [BMI] 37.0- 37.9, adult Plan: Discussed the importance of purpose fullness, discipline, consistency and time. She will go back into the right BMI tab and follow her meal plan exactly including the duration of her bars and shakes. As she can not afford an elliptical, but can not afford the gym, encouraged her to go to [employer] fitness as she has done in the past. Discussed the importance of exercise with a goal of burning 2000 calories per week. We will have her return to the office in approximately 3 weeks' time. Also discussed the importance of consistently sending her weight measurements and communicating weekly by text
[2024-10-06 10:35] VITALS: BMI 34.5
== END 2024-10-06 11:05 | disposition home or self-care (01) ==
LOC: HO.HBS 10:55
PROVIDERS: PCP Family Medicine; Visit Provider Physician Assistant Surgical
DX: E66.01 Morbid (severe) obesity due to excess calories (principal); Z68.37 Body mass index [BMI] 37.0-37.9, adult
CPT/HCPCS: 99213

== ENCOUNTER → 2024-10-06 10:30 | Outpatient (BNVA) | payer OTHER, SELFPAY | PROVIDERS: PCP Family Medicine; Visit Provider Physician Assistant Surgical | DX: E66.01 Morbid (severe) obesity due to excess calories (principal); Z68.37 Body mass index [BMI] 37.0-37.9, adult ==

== ENCOUNTER 2024-11-03 08:15 | Outpatient (AMB) | payer OTHER, SELFPAY ==
--- NOTE | 2024-11-03 09:56 | A.OFFVIS_ITS ---
VS Expanded 11/03/24 10:12 Height 5 ft 1 in Weight 184 lb 4 oz BMI 34.8 Body Fat % 45.4 Body Fat Mass 83.7 Fat Free Mass 100.6 Visceral Fat Rating 17 Body Water % 37.4 Body Water Mass 68.9 Basal Metabolic Rate/Score 1,363 Intake Visit Reasons: TV Pre Op LSG 11/16/24 Allergies codeine Allergy (Intermediate, Verified 11/03/24 09:56) Vomiting lactose Allergy (Intermediate, Verified 11/03/24 09:56) Gastrointestinal Upset morphine Allergy (Intermediate, Verified 11/03/24 09:56) tongue swelling Medication List - Last Reconciled 11/03/24 by Charly Wallace MD amlodipine 10 mg PO QAM atorvastatin 10 mg PO BEDTIME CPAP (CPAP Machine/Device) As directed escitalopram oxalate 20 mg PO QAM losartan 25 mg PO QAM omeprazole 20 mg PO QAM ondansetron 4 mg PO Q12H pantoprazole 40 mg PO DAILY polyethylene glycol 3350 (Miralax) 17 grams PO DAILY sucralfate 10 mL PO BID varenicline (Chantix) 1 mg PO BID HPI HPI TV Pre Op LSG 11/16/24: Details: Start time: 9.52am, End time: 10.22am ?I spent 25 minutes speaking with the patient on the phone plus an additional 5 minutes reviewing and updating records for a total of 30 minutes HPI Comments Details: Overall weight loss: 13.2lbs, or 6.7% TBWL Is doing 2 Elevation protein bars per day and one meal (6 forks each) Exercise: purchased a stationary bike ON LICENSE OF [facility] Medical History (Updated 11/03/24 @ 09:50 by Charly Wallace MD) BMI 35.0-35.9,adult History of HPV infection Renal calculi Anxiety Depression DJD (degenerative joint disease) GERD (gastroesophageal reflux disease) Prediabetes Hyperlipidemia Sleep apnea treated with continuous positive airway pressure (CPAP) Hypertension Obesity Surgical History (Updated 10/31/24 @ 11:16 by Rosario Awad RN) History of esophagogastroduodenoscopy (EGD) Hx of colonoscopy History of back surgery Family History Mother FH: kidney cancer Social History Are you a primary care technician to a significant other at home: No Do you presently have visiting nurse or other home services: No Alcohol intake: current Alcohol intake frequency: does not drink Alcohol type: wine Patient Tobacco Use Status: Current everyday Tobacco user Tobacco use type: Cigarette Cigarettes Per Day: 4 Years Smoked: 20 Second Hand Smoke Exposure: No Telehealth Telehealth Telehealth Platform: Telephone Location of provider rendering services: practice address Location of patient: address on file Patient Identification confirmed using: Name, : Yes Telehealth method: voice only Patient verbally consented to treatment: Yes Patient verbally consented to billing insurance company: Yes Patient informed of any privacy concerns related to visit: Yes Minutes spent on Phone/Video with Pt.: 30 Assessment & Plan Assessment & Plan (1) Obesity: Code(s): E66.9 - Obesity, unspecified Category: Medical Qualifiers: Obesity type: due to excess calories Obesity classification: adult class 2 (BMI 35 - 39.9) Serious obesity comorbidity presence: with serious c omorbidity Body mass index: BMI 37.0-37.9 Qualified Code(s): E66.01 - Morbid (severe) obesity due to excess calories; Z68.37 - Body mass index [BMI] 37.0- 37.9, adult Plan: 1. Plan for lap sleeve gastrectomy including upper GI endoscopy. All tests has been completed and reviewed and the patient is cleared for the surgery. ?If diaphragmatic or ventral hernias are present at time of surgery, these will be repaired laparoscopically as well. Risks and complications were discussed in detail including possible conversion to an open procedure, anastomotic leak, bleeding requiring transfusion, small bowel obstruction, , DVT and pulmonary embolism, cardiac, or pulmonary complications, as dominatrix complications such as anastomotic ulcer, insufficient weight loss and vitamin deficiencies. I emphasized the importance of close follow-up, adherence to instructions and good communication. So far she has proven to be an excellent communicator and very compliant with all our directions accomplishing a great weight loss. I believe that she is an excellent candidate and she is ready. 2. Preop prescriptions were provided and explained the purpose of each one. Need to be purchased preop. Start Pantoprazole now as you get it from the pharmacy, 1 pill per day. Sucralfate and Zofran are for after surgery as needed. 3. Bowel prep: please do 7 packets ?of Miralax mixing each one with a an 8oz glass of water, crystal light, gatorade zero, or propel ?on 11/14/24 and the same amount on 11/15/24. The Miralax you begin with one packet at a time in 8oz water or crystal light, gatorade zero, or propel ?as early in the day as you can and you do them back to back until you finish them. Continue the protein shakes during ?the bowel prep. 4. Needs to purchase 1oz medicine cups . 5. Needs to purchase Children's liquid Tylenol for postop pain control. 6. Avoid aspirin, motrin, Advil, Aleve, Ibuprofen, Excedrin, Naproxyn. Tylenol is OK. 7. She needs to purchase the Celebrate 4:1 protein shakes or the Celebrate multivitamins from the hospital's gift shop. 8. Will do basic preop blood work-up any day between Wednesday11/06/24 and Wednesday11/11/24 fasting for 12 hours and is scheduled to see the Anesthesiologist prior to the day of surgery. 9. Importance of adherence to postop folllow-up and recommendations was underscored and she understands that. 10. Stop food and bars as of tomorrow 11/04/24 and continue with 4 CELEBRATE REBUILD protein shakes (ONE scoop EACH in 8oz almond milk) at 7am-9am, 10am- 12pm, 1pm-3pm, 4pm-6pm and one more CELEBRATE REBUILD protein shake with TWO scoops in 8oz of almond milk at 7pm-9pm 11. No soups, broths or V8 12. The patient's?medical?history has been reviewed and they are considered low risk for post op DVT and therefore DVT prophylaxis is not considered necessary. Travel after surgery was reviewed. The patient has not disclosed any travel plans during the first 30 days after surgery and they have been advised that within the first 30 days after surgery any bus, plane, train or car travel over 2 hours in duration is contraindicated due to the possibility of developing blood clots from immobility. Any travel, needs to include periods of ambulation of 10 minutes in duration every 2 hours.? Patient was instructed to discuss any plans for travel during this period with their bariatric surgeon.? 13. Use your CPAP daily and bring it to the hospital with your mask 14. As of tomorrow, please check your blood pressure daily in the morning. If your blood pressure is: Below 120/70: do not take the Amlodipine or Losartan 121/71 to 130/80: take HALF Amlodipine 131/81 to 140/90: take HALF Amlodipine and HALF Losartan Over 141/91: take the whole Amlodipine and HALF Losartan 15. Please take at the day of surgery the following medications: Losartan and Amlodipine if the blood pressure that day is high enough to justify it based on the parameters at the previous bullet point. 16. Stop any control pills and don't use them for one month after surgery 17. Absolutely no smoking or vaping, or marijuana until the surgery and for at least the first 4 weeks. Only nicotine patches are allowed. 18. Send me weight measurements on Wednesday11/10/24 and then on 11/16/24, the day of surgery before you go to the hospital. 19. Avoid any steroids by mouth for any reason. Let me know if someone prescribes them to you 20. These instructions supersede anything else you read in the handbook, anything you watched in videos or classes or you were told by any other provider. If there is any conflict, you follow the above instructions and nothing else. Orders: Orders Comprehensive Met. Panel Today E66.01 - Morbid (severe) obesity due to excess calories, E78.5 - Hyperlipidemia, unspecified, I10 - Essential (primary) hypertension, Z68.35 - Body mass index [BMI] 35.0-35.9, adult, Z68.37 - Body mass index [BMI] 37.0-37.9, adult Prothrombin Time INR Today E66.01 - Morbid (severe) obesity due to excess calories, E78.5 - Hyperlipidemia, unspecified, I10 - Essential (primary) hypertension, Z68.35 - Body mass index [BMI] 35.0-35.9, adult, Z68.37 - Body mass index [BMI] 37.0-37.9, adult Type and Screen Today E66.01 - Morbid (severe) obesity due to excess calories, E78.5 - Hyperlipidemia, unspecified, I10 - Essential (primary) hypertension, Z68.35 - Body mass index [BMI] 35.0-35.9, adult, Z68.37 - Body mass index [BMI] 37.0-37.9, adult Partial Thromboplastin Time Today E66.01 - Morbid (severe) obesity due to excess calories, E78.5 - Hyperlipidemia, unspecified, I10 - Essential (primary) hypertension, Z68.35 - Body mass index [BMI] 35.0-35.9, adult, Z68.37 - Body mass index [BMI] 37.0-37.9, adult Lipid Panel Today E66.01 - Morbid (severe) obesity due to excess calories, E78.5 - Hyperlipidemia, unspecified, I10 - Essential (primary) hypertension, Z68.35 - Body mass index [BMI] 35.0-35.9, adult, Z68.37 - Body mass index [BMI] 37.0-37.9, adult Hemoglobin A1c Today E66.01 - Morbid (severe) obesity due to excess calories, E78.5 - Hyperlipidemia, unspecified, I10 - Essential (primary) hypertension, Z68.35 - Body mass index [BMI] 35.0-35.9, adult, Z68.37 - Body mass index [BMI] 37.0-37.9, adult Complete Blood Count Auto Diff Today E66.01 - Morbid (severe) obesity due to excess calories, E78.5 - Hyperlipidemia, unspecified, I10 - Essential (primary) hypertension, Z68.35 - Body mass index [BMI] 35.0-35.9, adult, Z68.37 - Body mass index [BMI] 37.0-37.9, adult TSH reflex Free T4 Today E66.01 - Morbid (severe) obesity due to excess calories, E78.5 - Hyperlipidemia, unspecified, I10 - Essential (primary) hypertension, Z68.35 - Body mass index [BMI] 35.0-35.9, adult, Z68.37 - Body mass index [BMI] 37.0-37.9, adult C Reactive Protein Today E66.01 - Morbid (severe) obesity due to excess calories, E78.5 - Hyperlipidemia, unspecified, I10 - Essential (primary) hypertension, Z68.35 - Body mass index [BMI] 35.0-35.9, adult, Z68.37 - Body mass index [BMI] 37.0-37.9, adult Insulin Today E66.01 - Morbid (severe) obesity due to excess calories, E78.5 - Hyperlipidemia, unspecified, I10 - Essential (primary) hypertension, Z68.35 - Body mass index [BMI] 35.0-35.9, adult, Z68.37 - Body mass index [BMI] 37.0- 37.9, adult Medications: New pantoprazole 40 mg PO DAILY 90 tabs 0RF K21.9 - Gastro-esophageal reflux disease without esophagitis sucralfate 10 mL PO BID 600 mL 2RF K21.9 - Gastro-esophageal reflux disease without esophagitis ondansetron Only take one every 12 hours as needed if you have nausea 4 mg PO Q12H 20 tabs 0RF nausea and vomiting R11.0 - Nausea polyethylene glycol 3350 (Miralax) Mix each measuring cup with 8oz of water, Crystal light, or Gatorade zero, or Propel and do 7 measuring cups on 11/14/24 and another 7 measuring cups on 11/15/24 17 grams PO DAILY 14 ea 0RF Z01.818 - Encounter for other preprocedural examination
[2024-11-03 10:12] VITALS: BMI 34.8
== END 2024-11-03 10:23 | disposition home or self-care (01) ==
LOC: HO.HBS 08:15
PROVIDERS: PCP Family Medicine; Visit Provider Surgery
DX: E66.01 Morbid (severe) obesity due to excess calories (principal); E66.811 Obesity, class 1; Z68.34 Body mass index [BMI] 34.0-34.9, adult
CPT/HCPCS: 99499

== ENCOUNTER → 2024-11-03 08:15 | Outpatient (BNVA) | payer OTHER, SELFPAY | PROVIDERS: PCP Family Medicine; Visit Provider Surgery ==

== ENCOUNTER 2024-11-16 06:16 | Inpatient (IN) | payer OTHER, SELFPAY ==
[2024-11-01 13:49] VITALS: BMI 34.4
[2024-11-06 07:14] LABS: Basophils Percent Auto 0.8 % (0-2); Eosinophils Absolute Auto 0.1 X10*3/uL (0.0-0.4); Eosinophils Percent Auto 1.8 % (0-4); Hematocrit 41.6 % (37.0-47.0); Hemoglobin 14.3 g/dl (12.0-16.0); Imm Gran Abs Auto 0.01 X10*3/uL (0.00-0.03); Imm Gran Pct Auto 0.2 % (0.0-0.4); Lymphocytes Percent Auto 38.8 % (20-40); MANUAL DIFF FLAG NO; Mean Corpuscular HGB Conc 34.4 g/dl (31.0-35.0); Mean Corpuscular Hemoglobin 31.1 pg (27.0-33.0); Mean Corpuscular Volume 90.4 fL (80.0-98.0); Mean Platelet Volume 10.5 fL (9.4-12.3); Monocytes Absolute Auto 0.3 X10*3/uL (0.1-1.2); Monocytes Percent Auto 6.6 % (2-11); Neutrophils Absolute Auto 2.7 x10*3/uL (2.0-8.3); Neutrophils Percent Auto 51.8 % (45-73); Platelet Count 209 X10*3/uL (160-400); Red Cell Distribution Width 12.6 % (11.0-16.0); White Blood Count 5.1 X10*3/uL (4.8-10.8)
[2024-11-06 07:20] LABS: Prothrombin Time 11.5 SEC (10.9-12.4)
[2024-11-06 07:22] LABS: Partial Thromboplastin Time 36.6 SEC (26.0-36.8)
[2024-11-06 07:26] LABS: Estimated Average Glucose 114 mg/dL; Hemoglobin A1C 134.5267 umol/L; Hemoglobin A1c % 5.6 % (<6.0); Total Hemoglobin (HGBA1C) 3605.3206 umol/L
[2024-11-06 07:47] LABS: Alanine Aminotransferase 17 U/L (0-31); Albumin Level 4.4 g/dL (3.5-5.0); Alkaline Phosphatase 108 U/L (39-117); Anion Gap 14 (12-20); Aspartate Amino Transferase 18 U/L (5-31); Bilirubin Total 0.8 mg/dL (0.0-1.0); Blood Urea Nitrogen 20 mg/dL (9-16); C Reactive Protein < 0.10 mg/dL (< or = 0.50); Calcium 9.2 mg/dL (8.4-10.2); Carbon Dioxide 25 mmol/L (22-29); Chloride 106 mmol/L (96-108); Cholesterol 153 mg/dL (<200); Creatinine Clr Calc Pharmacy 94.9; Estimated Glomerular Filt Rate > 60; Glucose Random 100 mg/dL (60-115); HDL Cholesterol 43 mg/dL (>40); LDL Cholesterol Calculated 89 mg/dL (<100); Potassium 3.8 mmol/L (3.3-5.1); Sodium 141 mmol/L (135-145); Triglycerides 105 mg/dL (<150)
[2024-11-06 08:26] LABS: Insulin 11 uU/mL (2-29); TSH reflex Free T4 1.67 uIU/mL (0.32-4.0)
--- NOTE | 2024-11-14 14:55 | P.CONAN_ITS ---
Documented by User: Guera Nowak NP 11/14/24 14:55 HPI - Anesthesia Eval Consult details Narrative: 53yo F for Gastrectomy Sleeve- EGD, possible diaphragmatic hernia, possible ventral hernia, possible open PMFSH Active Problems Active Problems: All Active Problems BMI 35.0-35.9,adult (Acute) Smoking (Acute) Anxiety (Acute) Depression (Acute) DJD (degenerative joint disease) (Acute) GERD (gastroesophageal reflux disease) (Acute) Prediabetes (Acute) Hyperlipidemia (Acute) Sleep apnea treated with continuous positive airway pressure (CPAP) (Acute) Hypertension (Acute) Obesity (Acute) Past Medical History Medical History BMI 35.0-35.9,adult History of HPV infection Renal calculi Anxiety Depression DJD (degenerative joint disease) GERD (gastroesophageal reflux disease) Prediabetes Hyperlipidemia Sleep apnea treated with continuous positive airway pressure (CPAP) Hypertension Obesity Family History Family History Mother FH: kidney cancer Family history of problems with anesthesia: No Surgical History Surgical History History of esophagogastroduodenoscopy (EGD) Hx of colonoscopy History of back surgery History of Problems with Anesthesia: No Social History Social History Are you a primary healthcare applications analyst to a significant other at home: No Do you presently have visiting nurse or other home services: No Alcohol intake: current Alcohol intake frequency: does not drink Alcohol type: wine Patient Tobacco Use Status: Current everyday Tobacco user Tobacco use type: Cigarette Cigarettes Per Day: 4 Years Smoked: 20 Patient Interested in Nicotine Replacement: Yes Second Hand Smoke Exposure: No Use of substances other than those prescribed or required for medical reasons: Yes Substance Use Type Other:: smokes marijuana qHS-advised to refrain 3-5 days pre-op Substance Use Frequency: Daily Have you been hit, kicked, punched, or otherwise hurt by someone within the past year? If so, by whom?: No Spiritual Healthcare Practices: none Mormonism Healthcare Practices: none Cultural Healthcare Practices: none Are you DNR?: No Advance Directives Information Provided: Yes (as above noted-will bring copy DOS) Advance Directives on File: No Recently lost weight without trying: No Eating poorly because of decreased appetite: No Nutrition Risks: No Nutritional Risk Patient : No FDLMP: n/a Poor oral hygiene: No (one missing tooth-upper right second molar) Meds Allergies Allergy/AdvReac Type Severity Reaction Status Date / Time codeine Allergy Intermediate Vomiting Verified 11/03/24 09:56 lactose Allergy Intermediate Gastrointestinal Verified 11/03/24 09:56 Upset morphine Allergy Intermediate tongue Verified 11/03/24 09:56 swelling Home Medications ?Medication ?Instructions ?Recorded ?Confirmed ?Last Taken ?Type escitalopram oxalate 20 mg tablet 20 mg PO QAM 05/23/24 11/03/24 11/15/24 Hi story CPAP (CPAP Machine/Device) 06/19/24 11/03/24 Unknown History amlodipine 10 mg tablet 10 mg PO QAM 06/19/24 11/03/24 11/16/24 History atorvastatin 10 mg tablet 10 mg PO BEDTIME 06/19/24 11/03/24 11/15/24 History losartan 25 mg tablet 25 mg PO QAM 06/19/24 11/03/24 11/15/24 History Exam Height,Weight and Vital Signs: Height 5 ft 1 in Weight 82.554 kg Pertinent Lab Results Pertinent Lab Results: Laboratory Tests 11/06/24 11/06/24 07:00 07:05 WBC 5.1 RBC 4.60 Hgb 14.3 Hct 41.6 MCV 90.4 MCH 31.1 MCHC 34.4 RDW 12.6 Plt Count 209 MPV 10.5 Immature Gran % (Auto) 0.2 Neut % (Auto) 51.8 Lymph % (Auto) 38.8 [place] % (Auto) 6.6 Eos % (Auto) 1.8 Baso % (Auto) 0.8 Lymph # (Auto) 2.0 [place] # (Auto) 0.3 Eos # (Auto) 0.1 Baso # (Auto) 0.0 Abs Immat Gran (auto) 0.01 Absolute Neuts (auto) 2.7 Absolute Nucleated RBC 0.000 Nucleated RBC % (auto) 0.0 PT 11.5 INR 1.0 APTT 36.6 Sodium 141 Potassium 3.8 Chloride 106 Carbon Dioxide 25 Anion Gap 14 BUN 20 H Creatinine 0.66 Estim Creat Clear Calc 94.9 Estimated GFR > 60 Random Glucose 100 Estimat Average Glucose 114 Hemoglobin A1c % 5.6 Insulin Level 11 Calcium 9.2 Total Bilirubin 0.8 AST 18 ALT 17 Alkaline Phosphatase 108 C-Reactive Protein < 0.10 Total Protein 7.0 Albumin 4.4 Triglycerides 105 Cholesterol 153 LDL Cholesterol, Calc 89 HDL Cholesterol 43 TSH 1.67 Blood Type A Positive Antibody Screen NEGATIVE Narrative Narrative: EKG 06/2024 Vent. Rate : 058 BPM Atrial Rate : 058 BPM P-R Int : 220 ms QRS Dur : 094 ms QT Int : 426 ms P-R-T Axes : 072 035 055 degrees QTc Int : 418 ms Sinus bradycardia with 1st degree A-V block Otherwise normal ECG No previous ECGs available Assessment and Plan Assessment Anesthesia Assessment: Chart Reviewed Final Anesthetic Review Family History of Problems with Anesthesia: No History of Problems with Anesthesia: No Documented by User: Edel Polk MD 11/16/24 09:12 HPI - Anesthesia Eval Consult details Narrative: 53yo F for EGD, Laparoscopic Sleeve Gastrectomy, possible diaphragmatic hernia repair, possible ventral hernia repair, possible open PMFSH Active Problems Active Problems: All Active Problems BMI 35.0-35.9,adult (Acute) Smoking (Acute)- quit earlier this month Anxiety (Acute) Depression (Acute) DJD (degenerative joint disease) (Acute) GERD (gastroesophageal reflux disease) (Acute) Prediabetes (Acute) Hyperlipidemia (Acute) Sleep apnea treated with continuous positive airway pressure (CPAP) (Acute) Hypertension (Acute) Obesity (Acute) Marijuana use Past Medical History Medical History BMI 35.0-35.9,adult History of HPV infection Renal calculi Anxiety Depression DJD (degenerative joint disease) GERD (gastroesophageal reflux disease) Prediabetes Hyperlipidemia Sleep apnea treated with continuous positive airway pressure (CPAP) Hypertension Obesity Family History Family History Mother FH: kidney cancer Family history of problems with anesthesia: No Surgical History Surgical History History of esophagogastroduodenoscopy (EGD) Hx of colonoscopy History of back surgery History of Problems with Anesthesia: No Social History Social History Are you a primary healthcare applications analyst to a significant other at home: No Do you presently have visiting nurse or other home services: No Alcohol intake: current Alcohol intake frequency: does not drink Alcohol type: wine Patient Tobacco Use Status: Current everyday Tobacco user Tobacco use type: Cigarette Cigarettes Per Day: 4 Years Smoked: 20 Patient Interested in Nicotine Replacement: Yes Second Hand Smoke Exposure: No Use of substances other than those prescribed or required for medical reasons: Yes Substance Use Type Other:: smokes marijuana qHS-advised to refrain 3-5 days pre-op Substance Use Frequency: Daily Have you been hit, kicked, punched, or otherwise hurt by someone within the past year? If so, by whom?: No Spiritual Healthcare Practices: none Mormonism Healthcare Practices: none Cultural Healthcare Practices: none Are you DNR?: No Advance Directives Information Provided: Yes (as above noted-will bring copy DOS) Advance Directives on File: No Recently lost weight without trying: No Eating poorly because of decreased appetite: No Nutrition Risks: No Nutritional Risk Patient : No FDLMP: n/a Poor oral hygiene: No (one missing tooth-upper right second molar) Meds Allergies Allergy/AdvReac Type Severity Reaction Status Date / Time codeine Allergy Intermediate Vomiting Verified 11/03/24 09:56 lactose Allergy Intermediate Gastrointestinal Verified 11/03/24 09:56 Upset morphine Allergy Intermediate tongue Verified 11/03/24 09:56 swelling Home Medications ?Medication ?Instructions ?Recorded ?Confirmed ?Last Taken ?Type escitalopram oxalate 20 mg tablet 20 mg PO QAM 05/23/24 11/03/24 11/15/24 History CPAP (CPAP Machine/Device) 06/19/24 11/03/24 Unknown History amlodipine 10 mg tablet 10 mg PO QAM 06/19/24 11/03/24 11/16/24 History atorvastatin 10 mg tablet 10 mg PO BEDTIME 06/19/24 11/03/24 11/15/24 History losartan 25 mg tablet 25 mg PO QAM 06/19/24 11/03/24 11/15/24 History Exam Height,Weight and Vital Signs: Height 5 ft 1 in Weight 82.554 kg Vital Signs Temp Pulse Resp BP Pulse Ox O2 Del Method 11/16/24 06:36 97.9 F 77 16 102/66 95 Room Air Airway Mallampati Class: II TM Dist: >3cm Neck ROM: Full Loose/Missing/Broken Teeth: Yes (Missing 1 tooth back. Denies broken or loose teeth) Heart: RRR Lungs: CTAB Assessment and Plan Assessment Anesthesia Assessment: Anesthesia Plan Discussed and Chart Reviewed Final Anesthetic Review Family History of Problems with Anesthesia: No History of Problems with Anesthesia: No NPO: Yes ASA Class: III Final Preanesthetic Review: No Changes in Pt Med Stat, Meds/Allgs Chart Re viewed, Consent Obtained/Reviewed and Anes Risks/Benef Reviewed Patient Risk: Intermediate Procedure Risk: Intermediate Assessment/Block/Sedation in SS: Assess/Block/Sedation- Anesthetic Plan Anesthetic Plan: GA Disposition: Standard PACU and Inp. Admit - Standard Bed
[2024-11-16] VITALS (10 sets, daily range): BP systolic 102–128; BP diastolic 53–66; PULSE 77–86; RESP 16–18; TEMP 36.1–37.2; O2SAT 92–97; BMI 31.8; BMI 36.9
[2024-11-16] MEDS: Lactated Ringers 1,000 ML 999 ML IV ×2 (06:48→07:45)
[2024-11-16] MEDS: Aprepitant 32 MG/4.4 ML VIAL IVPUSH (06:49)
--- NOTE | 2024-11-16 07:42 | P.HPSUR_ITS ---
Pre-Procedural Eval Section A - 24 Hr Update-Section A only Date of Service: 11/16/24 The patient is an INPATIENT: No The patient has been examined within 24 hours of the surgical procedure. The History & Physical has been completed within 30 days and I have reviewed it.: Yes Section B - Complete if H&P > 30 days Chief Complaint: Obesity Relevant Family History (Specify if Yes): No Relevant Social History: None Present Medications: None Medical History: No relevant PMH History of Previous Operations: No relevant previous surgery Allergies: Allergies Allergy/AdvReac Type Severity Reaction Status Date / Time codeine Allergy Intermediate Vomiting Verified 11/03/24 09:56 lactose Allergy Intermediate Gastrointestinal Verified 11/03/24 09:56 Upset morphine Allergy Intermediate tongue Verified 11/03/24 09:56 swelling Review of Systems Sugical H&P ROS: Negative: Constitution, Cardiovascular, Respiratory, Neurological, Psychiatric, Hem-Onc, Allergic/Immunologic, Gastrointestinal, Genitourinary, Musculoskeletal, Integumentary, Endocrine and Eyes/Ears/Nose/Throat Exam Surgical H&P Exam: Normal: HEENT, Normal: Heart, Normal: Lungs, Normal: Ex tremities, Normal: Abdomen, Normal: Skin and Normal: Neurological Plan Diagnosis/Plan: Unchanged I have reviewed the history and physical and performed a pertinent physical examination on my patient. No changes have occurred unless specified. Time Spent With Patient Time: Total time managing care of this patient today ____ minutes.
--- NOTE | 2024-11-16 10:14 | P.BOP_ITS ---
Brief Operative Note Date of Service: 11/16/24 Pre-op diagnosis: Severe obesity with comorbidities (see below) Post-op diagnosis: same Procedure: INITIAL PATIENT BMI ON PRESENTATION AT OUR OFFICE: 37.3 kg/m2 LAST BMI BEFORE SURGERY: 33.4 kg/m2 COMORBIDITIES: Rectocele, hypertension, prediabetes, hyperlipidemia, depression, anxiety, GERD, DJD ?The patient presented to the Weight Management Program with significant obesity that was negatively impacting the patient's comorbidities as listed above.? The program is a phased program with a special focus on preoperative medical weight management to promote substantial weight loss and prepare the patients for the second phase of the program: bariatric surgery. The patient participated in an intensive weekly lifestyle ?intervention and exercise program during which the patient ?has lost between the initial office visit and the last preoperative visit 13.2lbs, or 6.7% of initial actual body weight. It was deemed appropriate for the patient to now have bariatric surgery. In light of the current Covid-19 pandemic and the well documented strong association of obesity and increased risk of worse outcomes if infected with Covid-19 (REFERENCES: https://pubmed.ncbi.nlm.nih.gov/40145397/ ,? https://pubmed.ncbi.nlm.nih.gov/24901471/ ), any delay in undergoing bariatric surgery may lead to the patient's worsening health condition and increased?risk of more severe Covid-19 disease if infected. In addition a recent?study from [facility] published in [facility] on 11/24/2021 ([email or web address]) found that, among patients with obesity, substantial weight loss achieved with surgery was associated with improved outcomes of COVID-19 infection. The findings suggest that obesity can be a modifiable risk factor for the severity of COVID-19 infection. In addition, the patient met the BMI-criteria for bariatric surgery based on the BMI on initial presentation. The patient should not be penalized for achieving such weight loss because ?it is not sustainable long-term without surgical intervention and it was achieved in preparation for bariatric surgery ?under my direction and based on my published research ([email or web address]).[email or web address] and? https://www.soard.org/article/X3178-9438(02)37030-X/pdf ) ?that a 10% preoperative weight loss improves long-term weight loss after surgery and reduces perioperative complications.? Insurance carriers such as [facility] have endorsed my recommendations ?and have included in their policies criteria to include a 10% preoperative weight loss requirement. PROCEDURE: Esophago-gastroscopy, laparoscopic lysis of adhesions, laparoscopic sleeve gastrectomy and laparoscopic gastropexy INDICATIONS: This is a 53 year-old female who was electively scheduled for laparoscopic, possibly open sleeve gastrectomy. The risks and complications of the procedure were discussed with the patient in advance, particularly the possibility of ; pulmonary embolism; staple line leak; bleeding; GERD; cardiac, pulmonary, or renal complications; as well as long-term problems such as insufficient weight loss, vitamin deficiency, strictures, or ulcers. The patient understood all the risks, and was in agreement to proceed with surgery. DESCRIPTION OF PROCEDURE: After informed consent was obtained from the patient, the patient was given preoperative antibiotics, and was transferred to the operating room. After successful induction of general anesthesia, pneumatic compression devices were placed on both lower extremities. An upper endoscopy was performed next. The oropharynx and esophagus appeared to be within normal limits. There was no significant diaphragmatic hernia present. The stomach was entered. Then after all fluid and air were suctioned and the stomach was fully decompressed, the scope was withdrawn and secured in the mid esophagus. The patient was then prepped and draped in the usual sterile manner, and abdominal access was established at the right upper quadrant with the Martin technique. A 12 mm blunt port was inserted, and the abdomen was insufflated with CO2 to a pressure of 15 mmHg. Under direct visualization, additional ports were placed, specifically two 5 mm Versi-step ports to the left upper quadrant, and a 5 mm Versi-Step port to the right upper quadrant. 1% lidocaine plain was used to infiltrate all port sites as well as all fascia defects. Following that, the patient was placed in a steep reverse Trendelenburg position. An additional 5 mm port was placed to the right flank for the Mediflex retractor that was used to retract the left lobe of the liver. The gastro-esophageal fat pad was opened with the ultrasonic device (Thunderbeat, [employer]) and the anterior esophagus and hiatus were exposed. The angle of His was opened with the ultrasonic device the fundus of the stomach from any diaphragmatic and splenic attachments. I then opened the gastrocolic ligament between the transverse colon and the greater curvature of the stomach with the ultrasonic device to enter the lesser sac and facilitate the ligation of the short gastric vessels. I started at a mid-point along the greater curvature and using the Thunderbeat, all short gastric vessels were divided all the way to the angle of His until the left rema was completely dissected at its entirety. I then divided the gastro-colic ligament distally to a distance of about 3-4 cm proximal to the pylorus. There were extensive congenital adhesions between the pancreas and posterior gastric wall. Those were lysed completely with the ultrasonic device. Adhesiolysis took approximately 45 min to complete. The stomach was then divided transversely with two Endo COLLETTE-45 purple and four COLLETTE-60 articulating purple loads using the [employer] stapler and loads. Every effort was made that the gastric sleeve had a tubular shape and an even caliber throughout. Once the sleeve resection was completed, the staple line of the gastric sleeve was reinforced with Hemoclips. The resected stomach was retrieved without difficulty from the Martin port. A gastropexy was then performed in order to prevent postoperative GERD and partial gastric volvulus. Several interrupted 2.0 Surgidac sutures were placed between the sleeve's staple line and the previously divided greater omentum and gastro-colic ligament using the Endo-Stitch device. ?An upper endoscopy was performed. There was no narrowing at the GE junction. The scope was easily advanced all the way to the pylorus which was clearly visualized. There was no narrowing anywhere and the sleeve's caliber was even throughout. The sleeve's staple line was inspected and there was no evidence of ischemia, bleeding or dehiscence. At that point the gastroscope was withdrawn from the patient?s mouth while we were decompressing the bowel and the stomach from any remaining air. I looked into the lesser sac to see how the sleeve was situating and it was situating well. There was no bleeding from the staple line, spleen, or short gastric vessels. The Mediflex retractor was removed, and the undersurface of the liver was inspected and there was no bleeding. The patient was placed in supine position. I closed the fascial defect of the 12 mm port site with a figure of eight #1 Polysorb suture. Then 30cc Ropivacaine plain with 10 mg of Dexamethasone were used to infiltrate the fascial closure as well as all skin incisions. At this point, the abdomen was deflated, all ports were removed under direct vision, and no bleeding was noted from any of the port sites. The skin incisions were irrigated with saline and were closed with 4-0 absorbable monofilament sutures. Steri-Strips and OpSites were used to cover all incisions. The patient was extubated and was transferred in stable condition to the recovery room for further care. I was present and performed all gotti parts of the procedure. Ms. Heck was the psychiatric technician assistant. There were no residents to assist with this case. Jeffrey Wallace MD, PhD, FACS Surgeon: Charly Wallace MD Anesthesia: GETA, local and other (TAP block) Was an Real Estate Consultant used for this Procedure?: Yes Real Estate Consultant: Milena Heck Estimated blood loss (mL): 10 IV fluids (mL): 1,900 Urine output (mL): 0 (No Do to record output) Pathology: other (1) Stomach, 2) gastroesophageal fat pad) Condition: stable Disposition: PACU
--- NOTE | 2024-11-16 10:17 | P.DS_ITS ---
DS: Providers Provider Date of Service: 11/17/24 Date of admission: 11/16/24 06:16 Primary care physician: Zeyad Berger DO DS: Summary Hospital Course Hospital Course: ADMITTING DIAGNOSIS: obesity,?HLD, HTN, IONA on CPAP, DJD, GERD, anxiety, depression, prediabetes, former smoker ? DISCHARGE DIAGNOSIS: same, s/p laparoscopic sleeve gastrectomy and gastropexy PAST SURGICAL HISTORY:? History of esophagogastroduodenoscopy (EGD) Hx of colonoscopy History of back surgery ? PROCEDURE: upper endoscopy, laparoscopic sleeve gastrectomy and gastropexy ? DISCHARGE SUMMARY: ? History of Present Illness: ? The patient is a?53?year-old woman with a BMI of?31.8 kg/m2 and associated co- morbidities as described above. The patient had extensive work-up, lost? 29? lbs preoperatively and was electively scheduled for laparoscopic, possible open sleeve gastrectomy and gastropexy. Risks and complications of the surgery were discussed with the patient in advance, particularly the possibility of , pulmonary embolism, anastomotic leak, bleeding, bowel injury, GERD, cardiac, renal or pulmonary complications. The patient understood all the risks and was in agreement with the surgical plan. ? Hospital Course: ? The patient underwent an uneventful laparoscopic sleeve gastrectomy with gastropexy on the day of admission. Postoperatively, the patient was transferred to the surgical floor. The patient received IV Acetaminophen and IV dilaudid for pain control. Patient was started on bariatric phase 1 diet POD #0. On postoperative day one, the patient was feeling well without nausea, vomiting, fevers, or tachycardia. The patient had some mild incisional pain and the abdomen was soft.? ? On the morning of postoperative day one, the patient was continued on 1 ounce of water or ice every half hour. During the day, the patient did fairly well, having some incisional pain, but able to ambulate adequately and to tolerate liquids well. ? Since the patient is doing well, we decided that the patient was ready to be discharged. The patient was given instructions to follow-up with me next week and to call my office for any fever over 101, persistent abdominal pain, nausea, vomiting, GERD, symptoms of DVT such as calf tenderness, or leg swelling, or pulmonary embolism such as chest pain or shortness of breath.? The patient was also instructed to drink 40-60 ounces of liquids per day using the 1-ounce cups. The patient had been given prescriptions for Tylenol for pain, Zofran prn for nausea, and pantoprazole and carafate previously. The patient was encouraged to ambulate and use the incentive spirometer. The patient was allowed to shower, but no baths, and encouraged to stay active at home. All of these instructions were given to the patient personally. All questions were answered and the patient understood all instructions, the instructions were also given to the patient in print. Time Attestation Discharge Coordination Time (in mins): 30 Quality: Safe Use of Opioids Does Pt have an Active Cancer Diagnosis on the Problem List?: No Quality: Stroke Does the patient have a stroke diagnosis?: No Physical Exam Vital Signs: Vital Signs: Last Vital Signs Temp 97 F 11/16/24 10:00 Pulse 81 11/16/24 10:10 Resp 16 11/16/24 10:10 BP 125/57 L 11/16/24 10:10 Pulse Ox 95 11/16/24 10:10 O2 Del Method Room Air 11/16/24 10:10 O2 Flow Rate 2 11/16/24 10:05 BMI result Body Mass Index 31.8 DS: Data Data Completed and Pending Pending studies at discharge: Pending at discharge 11/16/24 09:07 Surgical [PTH] Routine Discharge Plan Discharge Anticipated Discharge Date/Time: 11/17/24 10:00 Patient Disposition: Home, Self-Care Discharge Diagnosis: s/p laparoscopic sleeve gastrectomy with gastropexy Referrals: Zeyad Berger DO [Primary Care Provider] - 1 Week Discharge Medications: Continued escitalopram oxalate 20 mg tablet 20 mg PO QAM atorvastatin 10 mg tablet 10 mg PO BEDTIME (DME) CPAP Machine/Device Device See Rx Instructions .Route Rx Instructions: As directed pantoprazole 40 mg tablet,delayed release (DR/EC) 40 mg PO DAILY Qty: 90 0RF sucralfate 100 mg/mL suspension 10 ml PO BID Qty: 600 2RF ondansetron 4 mg tablet,disintegrating 4 mg PO Q12H Qty: 20 0RF Rx Instructions: Only take one every 12 hours as needed if you have nausea Held losartan 25 mg tablet 25 mg PO QAM Hold Instructions: Resume on 11/17/24. Dose according to parameters given by Dr. Wallace amlodipine 10 mg tablet 10 mg PO QAM Hold Instructions: Resume on 11/17/24. Dose according to parameters given by Dr. Wallace Discharge Orders: Discharge Order (Routine); Ordered 11/17/24 Ordered By: Charly Wallace Activity on Discharge: No heavy lifting Stand Alone Forms: Patient Portal Discharge page Print Language: Serbian Care Plan Goals: weight loss Health Concerns: obesity Plan of Treatment: No tub baths, sex or returning to work until discussed at first post op appointment. No alcohol, tobacco or illegal drug use. Continue to use incentive spirometer hourly while awake. Walk in home for 5- 10 minutes every 2 hours during the first week. Wear abdominal binder with activity. Follow all meal plan instructions from your bariatric surgeon. Review bariatric handbook and call with any questions. Discharge Instructions 1. Please call your doctor or come back to the emergency room should any new symptoms arise. 2. Activity: abstain from alcohol,? limited stair climbing, no bending, no driving, no exercise, no illicit substances, no lifting, no sex, no tub bath, no work. 4. Diet: follow your bariatric surgeons recommendations for advancing diet. 5. Dressing Change/Wound Care: Your incisions are covered with waterproof dressings. You can shower with these and pat dry. Do not rub over dressings or incisions. If the area is tender, you may apply an ice pack for short intervals (no more than 20 minutes on, followed by at least 20 minutes off). Do not apply heat. Do not use creams, lotions, or topical antibiotics unless instructed to do so by your surgeon. 6. Call your doctor if: - Your temperature exceeds 101.5 F - You experience excessive pain or swelling - You have an unexpected reaction to medication - You have excessive bleeding - You experience continued vomiting/nausea - Your incision begins to separate - Your incision shows signs of infection such as increased redness, swelling, excessive pain, heat, or drainage (light blood or clear fluid is normal) General instructions: No lifting greater than 10 lbs for the next 6 weeks. [address] driving within 24 hours of taking narcotic pain medications. If you do not move your bowels in the next 2 days, please take milk of magnesia over the counter. Please follow the post op diet and do not advance your diet until you are seen in the office in about 2 weeks. Please walk around your home every hour or two to prevent blood clots from forming in your legs. You do not need to wake from sleeping to walk. Please sleep in a bed or couch to prevent kinking at the hips and knees. Please take your incentive spirometer (your lung maintenance controller) home with you and use it for the next few days to prevent pneumonias. You may shower, no hot tubs, baths or swimming pools. Please call the office with any questions or concerns such as increasing abdominal pain, fever, chills, shortness of breath, chest pain, leg pain or swelling, or redness or drainage from your incisions. Please make sure you are consuming 40-60 ounces of total fluids per day. Avoid all carbonation. Do not hesitate to contact the office with any questions at . The patient's medical history has been reviewed and they are considered low risk for post op DVT and therefore DVT prophylaxis is not considered necessary. Travel after surgery was reviewed. The patient has not disclosed any travel plans during the first 30 days after surgery and they have been advised that within the first 30 days after surgery any bus, plane, train or car travel over 2 hours in duration is contraindicated due to the possibility of developing blood clots from immobility. Any travel, needs to include periods of ambulation of 10 minutes in duration every 2 hours.? The patient was instructed to discuss any plans for travel during this period with their bariatric surgeon. Assessment: s/p laparoscopic sleeve gastrectomy with gastropexy Discharge Date/Time: 11/17/24 08:57
--- NOTE | 2024-11-16 10:18 | P.PNGS_ITS ---
Subjective Subjective Date of Service: 11/17/24 Interval history: Feels well. Mild incisional pain. She is tolerating phase 1 bariatric diet Physical Exam 2 Vital Signs: Vital Signs: Last Vital Signs Temp 97 F 11/16/24 10:00 Pulse 81 11/16/24 10:10 Resp 16 11/16/24 10:10 BP 125/57 L 11/16/24 10:10 Pulse Ox 95 11/16/24 10:10 O2 Del Method Room Air 11/16/24 10:10 O2 Flow Rate 2 11/16/24 10:05 BMI result Body Mass Index 31.8 GI: Inspection: Yes normal to inspection, Yes incision (clean, dry and intact) and Yes obesity Palpation (GI): Soft to palpation Extrem: Right lower extremity: normal to inspection (no calf tenderness) L eft lower extremity: normal to inspection (no calf tenderness) Objective Data Active Medications Albuterol Sulfate (Albuterol Sulfate (0.083%) 2.5 Mg/3 Ml Vial.Neb) 2.5 mg INHALE ONCE PRN PRN Reason: Shortness of Breath/Wheezing Fentanyl (Fentanyl Citrate/Pf 100 Mcg/2 Ml Vial) 25 mcg IVPUSH Q5M PRN PRN Reason: Pain, Moderate to Severe (Pain Scale 4-10) Stop: 11/16/24 15:12 Haloperidol Lactate (Haloperidol Lactate 5 Mg/Ml Vial) 1 mg IVPUSH ONCE PRN PRN Reason: intractable nausea Stop: 11/16/24 15:13 Hydromorphone HCl (Hydromorphone Hcl 0.5 Mg/0.5 Ml Syringe) 0.25 mg IVPUSH Q5M PRN PRN Reason: Pain, Moderate to Severe (Pain Scale 4-10) Stop: 11/16/24 15:12 Lactated Ringer's (Lr) 1,000 mls @ 100 mls/hr IVCONT .Q10H SWETHA Labs 11/17/24 05:03 11/17/24 05:03 Procedures Date of Service Date of Service: 11/17/24 Progress Note: A&P Assessment and plan (1) Obesity: Status: Acute Assessment and Plan: s/p laparoscopic sleeve gastrectomy, lysis of adhesions and gastropexy Doing well Will check am labs and if OK the patient will be discharged home (2) BMI 33.0-33.9,adult: Status: Acute (3) Depression: Status: Acute (4) Anxiety: Status: Acute (5) Hypertension: Status: Acute (6) Hyperlipidemia: Status: Acute (7) Prediabetes: Status: Acute (8) GERD (gastroesophageal reflux disease): Status: Acute (9) DJD (degenerative joint disease): Status: Acute (10) Sleep apnea treated with continuous positive airway pressure (CPAP): Status: Acute Time Spent With Patient Time: Total time managing care of this patient today ____ minutes. Quality Stroke Does the patient have a stroke diagnosis?: No VTE Prior VTE?: No VTE Risk Level:: Surgical - moderate VTE Device Contraindication: N/A - Device Ordered VTE Drug Contraindication: Treatment Not Indicated
[2024-11-16] MEDS: Haloperidol Lactate 5 MG/ML VIAL 1 MG IVPUSH (10:25)
--- NOTE | 2024-11-16 10:48 | PHA.MEDREC ---
Addendum entered by Arnaud Mendez RPh 11/16/24 10:59: Med rec was reviewed by PASTORA. Original Note: Pharmacy Consult ? Medication Reconciliation Pharmacy has completed the medication reconciliation. claims match med list.
[2024-11-16] MEDS: Lactated Ringers 1,000 ML 100 ML IVCONT ×2 (10:58→21:07)
[2024-11-16 11:07] LABS: Hematocrit 42.4 % (37.0-47.0); Hemoglobin 14.8 g/dl (12.0-16.0)
[2024-11-16] MEDS: Escitalopram Oxalate 20 MG TABLET PO (11:13)
[2024-11-16 11:22] LABS: Anion Gap 22 (12-20); Blood Urea Nitrogen 12 mg/dL (9-16); Calcium 8.8 mg/dL (8.4-10.2); Carbon Dioxide 18 mmol/L (22-29); Chloride 104 mmol/L (96-108); Creatinine Clr Calc Pharmacy 86.8; Estimated Glomerular Filt Rate > 60; Glucose Random 95 mg/dL (60-115); Potassium 3.7 mmol/L (3.3-5.1); Sodium 140 mmol/L (135-145)
[2024-11-16] MEDS: ceFAZolin Sodium/Dextrose,Iso 2 GM/50 ML PIGGYBACK IV (14:16)
[2024-11-16] MEDS: Acetaminophen 1,000 MG/100 ML PIGGYBACK 16.7 MG IV ×2 (15:19→21:46)
[2024-11-16] MEDS: Atorvastatin Calcium 10 MG TABLET PO (19:22)
[2024-11-16] MEDS: Famotidine/PF 20 MG/2 ML VIAL IVPUSH (19:22)
[2024-11-16] MEDS: 0.9 % Sodium Chloride Flush 3 ML SYRINGE IVFLUSH (19:23)
[2024-11-17 03:23] VITALS: BP 126/67; PULSE 72; RESP 16; TEMP 36.8; O2SAT 94
[2024-11-17] MEDS: Acetaminophen 1,000 MG/100 ML PIGGYBACK 16.7 MG IV (03:23)
[2024-11-17 06:04] LABS: MANUAL DIFF FLAG NO
[2024-11-17 06:18] LABS: Basophils Percent Auto 0.1 % (0-2); Hematocrit 40.7 % (37.0-47.0); Hemoglobin 14.3 g/dl (12.0-16.0); Imm Gran Abs Auto 0.02 X10*3/uL (0.00-0.03); Imm Gran Pct Auto 0.2 % (0.0-0.4); Lymphocytes Absolute Auto 1.5 X10*3/uL (1.2-4.9); Lymphocytes Percent Auto 16.7 % (20-40); Mean Corpuscular HGB Conc 35.1 g/dl (31.0-35.0); Mean Corpuscular Hemoglobin 31.1 pg (27.0-33.0); Mean Corpuscular Volume 88.5 fL (80.0-98.0); Monocytes Absolute Auto 0.5 X10*3/uL (0.1-1.2); Monocytes Percent Auto 5.4 % (2-11); Neutrophils Absolute Auto 6.7 x10*3/uL (2.0-8.3); Neutrophils Percent Auto 77.6 % (45-73); Platelet Count 190 X10*3/uL (160-400); Red Cell Distribution Width 12.4 % (11.0-16.0); White Blood Count 8.7 X10*3/uL (4.8-10.8)
[2024-11-17] MEDS: Lactated Ringers 1,000 ML 100 ML IVCONT (06:32)
[2024-11-17 06:40] LABS: Anion Gap 17 (12-20); Blood Urea Nitrogen 9 mg/dL (9-16); Calcium 8.9 mg/dL (8.4-10.2); Carbon Dioxide 21 mmol/L (22-29); Chloride 106 mmol/L (96-108); Creatinine Clr Calc Pharmacy 89.2; Estimated Glomerular Filt Rate > 60; Glucose Random 96 mg/dL (60-115); Potassium 4.7 mmol/L (3.3-5.1); Sodium 139 mmol/L (135-145)
[2024-11-17] MEDS: Famotidine/PF 20 MG/2 ML VIAL IVPUSH (07:14)
[2024-11-17] MEDS: Escitalopram Oxalate 20 MG TABLET PO (07:14)
[2024-11-17 07:19] VITALS: BP 110/61; PULSE 70; RESP 16; TEMP 37.3; O2SAT 92
--- NOTE | 2024-11-17 09:29 | MHC.CM.PN ---
CM MET WITH PT AT [facility]. PT LIVES ALONE AND IS FUNCTIONALLY INDEPENDENT. EMPLOYED F/T. +HCP (COPY ON FILE AT [facility]) PCP JUSTIN PICHARDO DO DP: PT HAS BEEN MEDICALLY CLEARED FOR DC HOME, NO SERVICES. PT HAS OWN RIDE HOME.
--- NOTE | 2024-11-17 10:30 | HO.POSTANES ---
Post Anesthesia Evaluation Post Anesthesia Evaluation Date of Service: 11/17/24 Vital Signs: Vital Signs Temp Pulse Resp BP Pulse Ox O2 Del Method 11/17/24 07:19 99.1 F 70 16 110/61 92 Room Air 11/17/24 03:23 98.3 F 72 16 126/67 94 Room Air 11/16/24 23:22 99 F 18 110/60 93 Room Air Anesthesia: General Endotracheal-GETA Mental Status: Awake Pain Control: Satisfactory Nausea/Vomiting: None Hydration: Adequate Anesthesia-Related Issues: No Anes. Related Issues
== END 2024-11-17 08:57 | disposition home or self-care (01) | DRG 403 ==
LOC: HO.SSSA 06:18 → HO.S3 10:19
PROVIDERS: Physician Assistant Surgical; Admitting Provider Surgery; PCP Family Medicine; Visit Provider Surgery
PROC: 0DB64Z3 Excision of Stomach, Percutaneous Endoscopic Approach, Vertical (ICD-10-PCS; CPT 43845; principal; 2024-11-16 07:30)
DX: E66.01 Morbid (severe) obesity due to excess calories (principal); E78.5 Hyperlipidemia, unspecified; I10 Essential (primary) hypertension; G47.33 Obstructive sleep apnea (adult) (pediatric); M19.90 Unspecified osteoarthritis, unspecified site; F32.A Depression, unspecified; F41.9 Anxiety disorder, unspecified; K21.9 Gastro-esophageal reflux disease without esophagitis; Z68.33 Body mass index [BMI] 33.0-33.9, adult; Z87.891 Personal history of nicotine dependence; Z79.899 Other long term (current) drug therapy
CPT/HCPCS: 43775; 43659; 36415; 80048; 80053; 80061; 83036; 83525; 84443; 85014; 85018; 85025; 85610; 85730; 86140; 86850; 86900; 86901; 88304; 88305; 88307; 88342; A4649; C9145; J0131; J0690; J1100; J1630; J2003; J2250; J2405; J2704; J2795; J3010; J7120

== ENCOUNTER → 2024-11-16 06:16 | Outpatient (BNV) | payer OTHER, SELFPAY | PROVIDERS: Admitting Provider Surgery; PCP Family Medicine; Visit Provider Surgery | DX: E66.01 Morbid (severe) obesity due to excess calories (principal); Z68.37 Body mass index [BMI] 37.0-37.9, adult; Z68.33 Body mass index [BMI] 33.0-33.9, adult; F32.A Depression, unspecified; F41.9 Anxiety disorder, unspecified; I10 Essential (primary) hypertension; E78.5 Hyperlipidemia, unspecified; R73.03 Prediabetes; K21.9 Gastro-esophageal reflux disease without esophagitis; M19.90 Unspecified osteoarthritis, unspecified site; G47.30 Sleep apnea, unspecified | CPT/HCPCS: 43659; 43775; 99024; 99499 ==

== ENCOUNTER 2024-11-23 10:15 | Outpatient (AMB) | payer OTHER, SELFPAY ==
--- NOTE | 2024-11-23 10:22 | MHC.OFFVISWM ---
VS Expanded 11/23/24 11:02 BP 107/61 Blood Pressure Location Rt brachial Blood Pressure Position Sitting Pulse 66 Pulse Source Pulse Oximeter Temp 96.4 F L Temperature Source Temporal Artery Scan Pulse Oximetry 97 Oxygen Delivery Method Room Air Height 5 ft 1 in Weight 160 lb 12.8 oz BMI 30.4 Body Fat % 38.5 Body Fat Mass 62.0 Fat Free Mass 98.8 Visceral Fat Rating 9.0 Body Water % 43.6 Body Water Mass 70.2 Muscle Mass/Score 93.6 Basal Metabolic Rate/Score 1,360 Intake Visit Reasons: (OV) PO LSG 11/16/24 Allergies codeine Allergy (Intermediate, Verified 11/03/24 09:56) Vomiting lactose Allergy (Intermediate, Verified 11/03/24 09:56) Gastrointestinal Upset morphine Allergy (Intermediate, Verified 11/03/24 09:56) tongue swelling HPI Comments Details: The patient is a pleasant 53-year-old female who returns to the office today in follow-up. She is approximately 7 days post sleeve gastrectomy performed on 10/1924. Weight today is 160.8 lb with a BMI of 30.4. Tolerating 3 celebrate rebuild shakes with 1 scoop each. Her meal plan was changed today to include celebrate rebuild, 2 scoop, 2 scoop, 1.5 scoop. She additionally is drinking approximately 40-50 oz of fluids daily and has been moving her bowels. Denies any complaints of pain. FORMERLY [facility], [facility] Medical History BMI 35.0-35.9,adult History of HPV infection Renal calculi Anxiety Depression DJD (degenerative joint disease) GERD (gastroesophageal reflux disease) Prediabetes Hyperlipidemia Sleep apnea treated with continuous positive airway pressure (CPAP) Hypertension Obesity Surgical History History of esophagogastroduodenoscopy (EGD) Hx of colonoscopy History of back surgery Family History Mother FH: kidney cancer Social History Household Members: Significant Other Housing: House Are you a primary caretaker resort to a significant other at home: No Do you presently have visiting nurse or other home services: No Alcohol intake: current Alcohol intake frequency: does not drink Alcohol type: wine Patient Tobacco Use Status: Former Tobacco user Tobacco use type: Cigarette Cigarettes Per Day: 4 Years Smoked: 20 Second Hand Smoke Exposure: No Substance Use Type: Marijuana service: No Physical Exam GI Inspection: Yes incision (Clean, dry, intact.) Assessment & Plan Assessment & Plan (1) S/P laparoscopic sleeve gastrectomy: Code(s): Z98.84 - Bariatric surgery status Category: Surgical Plan: POD 7 s/p LSG on 10/[address] Wallace Weight loss prior to surgery was 16.1 pounds or 8.1 % TBWL. Original weight on 06/1924 was 197.6 pounds and op weight was 181.5 pounds. Be sure to text Dr Wallace exactly 1 week after surgery your weight from your home scale so he can adjust your meal plan. Continue meal plan until f/u w Milena in 2 weeks May shower, no submersion in bath for another week Continue abdominal binder with activity and exercise for the next 2 weeks. Exercise prior to surgery was treadmill and may resume No abdominal exercises for 6 weeks post operatively Will be emailed link to post op video for review Reminded of the pace of drinking, 2 mL per minute, 1 oz/15 min. She is no longer taking blood pressure medications
[2024-11-23 11:02] VITALS: BP 107/61; PULSE 66; TEMP 35.8; O2SAT 97; BMI 30.4
== END 2024-11-23 11:10 | disposition home or self-care (01) ==
PROVIDERS: PCP Family Medicine; Visit Provider Physician Assistant Surgical
DX: Z98.84 Bariatric surgery status (principal)
CPT/HCPCS: 99024

== ENCOUNTER → 2024-11-23 10:15 | Outpatient (BNVA) | payer OTHER, SELFPAY | PROVIDERS: PCP Family Medicine; Visit Provider Physician Assistant Surgical ==

== ENCOUNTER → 2024-12-06 13:46 | Outpatient (AMB) | payer OTHER, SELFPAY ==
--- NOTE | 2024-12-06 13:25 | MHC.WMTHER ---
Intake Intake Visit Reasons: VIDEO PO LSG 11/16/24 Allergies codeine Allergy (Intermediate, Verified 11/03/24 09:56) Vomiting lactose Allergy (Intermediate, Verified 11/03/24 09:56) Gastrointestinal Upset morphine Allergy (Intermediate, Verified 11/03/24 09:56) tongue swelling PFSH Medical History BMI 35.0-35.9,adult History of HPV infection Renal calculi Anxiety Depression DJD (degenerative joint disease) GERD (gastroesophageal reflux disease) Prediabetes Hyperlipidemia Sleep apnea treated with continuous positive airway pressure (CPAP) Hypertension Obesity Surgical History History of esophagogastroduodenoscopy (EGD) Hx of colonoscopy History of back surgery Family History Mother FH: kidney cancer Social History Household Members: Significant Other Housing: House Are you a primary home care rn to a significant other at home: No Do you presently have visiting nurse or other home services: No Alcohol intake: current Alcohol intake frequency: does not drink Alcohol type: wine Patient Tobacco Use Status: Former Tobacco user Tobacco use type: Cigarette Cigarettes Per Day: 4 Years Smoked: 20 Second Hand Smoke Exposure: No Substance Use Type: Marijuana service: No Behavioral Health Assessment Weight Management Therapy Therapy Notes Details Subjective: The patient presents for a post-op bariatric visit, following surgery on 11/16 (3 weeks ago). She reports being happy with her weight loss progress, though she has not lost any weight this week. She expresses feeling ready for solid food. Additionally, the patient mentions experiencing constipation and difficulty consuming all of the required shakes. Objective: Patient's mood and overall disposition appear positive, with no signs of distress. PHQ-9 was administered, and no concerning symptoms or depression were identified. Discussed progress with recovery and the ongoing challenges of the weight loss journey. Assessment/Response: Patient is progressing well in her recovery but facing some challenges with constipation and meeting nutritional intake requirements (shakes). No concerning symptoms were reported on the PHQ-9, and patient is motivated to continue her journey. Emphasized the importance of following diet guidelines for optimal healing and weight loss. MSE: WNL Safety concern: None reported or identified. Food/Weight/Diet Expectations of change Initial goal to lose 10% of your weight before surgery, which is about 20lbs. Ultimate weight goal: 177lbs before surgery. 09/18/2024: 185Lbs. Pre-surgery weight: 164 lbs per client's records. 11/23/2024: 160 Lbs. (office scale) 12/06/2024: 163Lbs (home machine) - PT reports her scale has 2-3 Lbs. discrepancy. PT target goal: 130 lbs. PT is implementing the following: Current meal plan: 4 shakes a day. 64oz of water. Exercise plan: None. Feels to weak and tired. She has a treadmill at home, Questionnaires PHQ-9 Over the last 2 weeks, how often have you been bothered by any of the following problems? 1. Little interest or pleasure in doing things: not at all 2. Feeling down, depressed, or hopeless: not at all 3. Trouble falling or staying asleep, or sleeping too much: not at all 4. Feeling tired or having little energy: nearly every day 5. Poor appetite or overeating: not at all 6. Feeling bad about yourself - or that you are a failure or have let yourself or your family down: not at all 7. Trouble concentrating on things, such as reading the newspaper or watching television: not at all 8. Moving or speaking so slowly that other people could have noticed. Or the opposite - being so fidgety or restless that you have been moving around a lot more than usual: not at all 9. Thoughts that you would be better off or of hurting yourself in some way: not at all Total score: 3 Depression Screening Interpretation: Negative Depression Screening Done: Yes 78452 - PHQ-9 Billing: Yes Source: Developed by Drs. Zane Bay, Susy Ramirez, Rojas Pierce and colleagues, with an educational erin from [employer]. Assessment & Plan Assessment & Plan (1) Depression: Code(s): F32.A - Depression, unspecified (2) Panic disorder: Code(s): F41.0 - Panic disorder [episodic paroxysmal anxiety] Plan Advised the patient to contact her provider as soon as possible regarding her constipation and discuss potential adjustments to her meal plan. Reinforced program expectations and the importance of adhering to dietary instructions for better healing and continued progress. Patient doesn't need a F/up with this provider, but she is encouraged to reach out for additional support as needed. Next BRADLEY: TBD/ Upon client's request Telehealth Telehealth Telehealth Platform: [employer] Location of provider rendering services: other Location of patient: other (Work. [place], [place]) Patient Identification confirmed using: Name, : Yes Telehealth method: video Patient verbally consented to treatment: Yes Patient verbally consented to billing insurance company: Yes Patient informed of any privacy concerns related to visit: Yes Minutes spent on Phone/Video with Pt.: 35 Coding Level of Care Code Established Pt Tele Psytx 30 mins ([id number]) Patient Type Established Diagnoses Depression F32.A Panic disorder F41.0 Additional Codes PHQ-9 - 45652 - PHQ-9 Billing: Yes ([id number]) Time Spent (min) 35
== END ==
LOC: HO.HBST 13:46
PROVIDERS: PCP Family Medicine; Visit Provider Counselor Mental Health
DX: F32.1 Major depressive disorder, single episode, moderate (principal); F41.0 Panic disorder [episodic paroxysmal anxiety]
CPT/HCPCS: 90832

== ENCOUNTER 2024-12-11 13:36 | Outpatient (AMB) | payer OTHER, SELFPAY ==
--- NOTE | 2024-12-11 13:31 | A.OFFVIS_ITS ---
Intake Visit Reasons: (TV) PO LSG 11/16/24 Allergies codeine Allergy (Intermediate, Verified 11/03/24 09:56) Vomiting lactose Allergy (Intermediate, Verified 11/03/24 09:56) Gastrointestinal Upset morphine Allergy (Intermediate, Verified 11/03/24 09:56) tongue swelling Medication List - Last Reconciled 12/11/24 by TAN Hairston amlodipine 10 mg PO QAM atorvastatin 10 mg PO BEDTIME CPAP (CPAP Machine/Device) As directed escitalopram oxalate 20 mg PO QAM losartan 25 mg PO QAM ondansetron 4 mg PO Q12H pantoprazole 40 mg PO DAILY sucralfate 10 mL PO BID HPI Comments Details: This?is a?53?yo F who is s/p LSG 11/16/2024. Presents for 4 week post op visit. Weight at last visit on 11/23/2024 was 160.8lbs, weight today is same.? No complaints of nausea, emesis, abdominal pain or reflux, or constipation. Has not needed any BP meds. Met with Cammie last week. Did not check in with Dr. Mccoy last week. Present meal plan includes: Celebrate Rebuild shakes taking in some sugar free popsicles, low on overall fluid intake taking MVI gets full very quickly so having trouble finishing all shakes Exercise routine includes: just got an exercise bike, has enough energy to exercise now- started last night 15 min PFSH Medical History BMI 35.0-35.9,adult History of HPV infection Renal calculi Anxiety Depression DJD (degenerative joint disease) GERD (gastroesophageal reflux disease) Prediabetes Hyperlipidemia Sleep apnea treated with continuous positive airway pressure (CPAP) Hypertension Obesity Surgical History History of esophagogastroduodenoscopy (EGD) Hx of colonoscopy History of back surgery Family History Mother FH: kidney cancer Social History Household Members: Significant Other Housing: House Are you a primary child care coordinator to a significant other at home: No Do you presently have visiting nurse or other home services: No Alcohol intake: current Alcohol intake frequency: does not drink Alcohol type: wine Patient Tobacco Use Status: Former Tobacco user Tobacco use type: Cigarette Cigarettes Per Day: 4 Years Smoked: 20 Second Hand Smoke Exposure: No Substance Use Type: Marijuana service: No Telehealth Telehealth Telehealth Platform: Telephone Location of provider rendering services: other Location of patient: address on file Patient Identification confirmed using: Name, : Yes Telehealth method: voice only Patient verbally consented to treatment: Yes Patient verbally consented to billing insurance company: Yes Patient informed of any privacy concerns related to visit: Yes Minutes spent on Phone/Video with Pt.: 14 Assessment & Plan Assessment & Plan (1) S/P laparoscopic sleeve gastrectomy: Code(s): Z98.84 - Bariatric surgery status Category: Surgical (2) Obesity: Code(s): E66.9 - Obesity, unspecified Category: Medical Qualifiers: Obesity type: due to excess calories Obesity classification: adult class 2 (BMI 35 - 39.9) Serious obesity comorbidity presence: with serious comorbidity Body mass index: BMI 37.0-37.9 Qualified Code(s): E66.01 - Morbid (severe) obesity due to excess calories; Z68.37 - Body mass index [BMI] 37.0-37. 9, adult Plan Ecnouraged pt to reach out to Dr. Mccoy and update with weight measurements, let him know she now has an exercise bike. Discussed the importance of adequate protein intake combined with exercise. Pt will work on hydration. ace sent to pharmacy for constipation. Discussed activity restrictions until 6w postop. RTC 1 month. I spent a total of 30 minutes reviewing/updating records, examining the patient and counseling the patient on weight management as detailed above. Medications: New docusate sodium 100 mg PO BID 90 caps 0RF
== END 2024-12-11 13:55 | disposition home or self-care (01) ==
LOC: HO.HBS 13:36
PROVIDERS: PCP Family Medicine; Visit Provider Physician Assistant Surgical
DX: E66.812 Obesity, class 2 (principal); Z68.37 Body mass index [BMI] 37.0-37.9, adult; Z90.3 Acquired absence of stomach [part of]; Z98.84 Bariatric surgery status
CPT/HCPCS: 99024

== ENCOUNTER 2025-01-01 13:43 | Outpatient (AMB) | payer OTHER, SELFPAY ==
--- NOTE | 2025-01-01 13:34 | MHC.OFFVISWM ---
VS Expanded 01/01/25 13:37 Height 5 ft 1 in Weight 158 lb BMI 29.9 Intake Visit Reasons: TELEPHONE PO LSG 11/16/24 Allergies codeine Allergy (Intermediate, Verified 11/03/24 09:56) Vomiting lactose Allergy (Intermediate, Verified 11/03/24 09:56) Gastrointestinal Upset morphine Allergy (Intermediate, Verified 11/03/24 09:56) tongue swelling Medication List - Last Reconciled 01/01/25 by TAN Hairston amlodipine 10 mg PO QAM atorvastatin 10 mg PO BEDTIME CPAP (CPAP Machine/Device) As directed docusate sodium 100 mg PO BID escitalopram oxalate 20 mg PO QAM losartan 25 mg PO QAM ondansetron 4 mg PO Q12H pantoprazole 40 mg PO DAILY sucralfate 10 mL PO BID HPI Comments Details: This?is a?54?yo female who is s/p LSG 11/16/2024. Presents for 7 week post op visit. Weight at last visit on 12/11/2024 was 160.8 pounds, weight today is 158 pounds, representing a 2.8 pound weight loss with a BMI today of 29.9.? No complaints of nausea, emesis, abdominal pain or reflux, or constipation. Has not needed amlodipine or losartan, remain on hold. Has not texted Dr Mccoy since last visit. Present meal plan includes: Celebrate Rebuild shakes pt reports doing some salad and chicken at dinner taking MVI gets full very quickly so having trouble finishing all shakes hydration- has improved since last visit, gets about 50 oz or more Exercise routine includes: has an exercise bike, has been doing 3-4x/week 30 min PFSH Medical History BMI 35.0-35.9,adult History of HPV infection Renal calculi Anxiety Depression DJD (degenerative joint disease) GERD (gastroesophageal reflux disease) Prediabetes Hyperlipidemia Sleep apnea treated with continuous positive airway pressure (CPAP) Hypertension Obesity Surgical History History of esophagogastroduodenoscopy (EGD) Hx of colonoscopy History of back surgery Family History Mother FH: kidney cancer Social History Household Members: Significant Other Housing: House Are you a primary insurance healthcare representative to a significant other at home: No Do you presently have visiting nurse or other home services: No Alcohol intake: current Alcohol intake frequency: does not drink Alcohol type: wine Patient Tobacco Use Status: Former Tobacco user Tobacco use type: Cigarette Cigarettes Per Day: 4 Years Smoked: 20 Second Hand Smoke Exposure: No Substance Use Type: Marijuana service: No Telehealth Telehealth Telehealth Platform: Telephone Location of provider rendering services: other Location of patient: address on file Patient Identification confirmed using: Name, : Yes Telehealth method: voice only Patient verbally consented to treatment: Yes Patient verbally consented to billing insurance company: Yes Patient informed of any privacy concerns related to visit: Yes Minutes spent on Phone/Video with Pt.: 15 Assessment & Plan Assessment & Plan (1) S/P laparoscopic sleeve gastrectomy: Code(s): Z98.84 - Bariatric surgery status Category: Medical (2) Overweight: Code(s): E66.3 - Overweight Category: Medical Plan Pt aware her rate of weight loss is slower than desired. She will start texting me weekly on . New meal plan: 1 Rebuild shake (20g) Half of 1 premade premier shake (15g) 1 elevation bar from [employer] (20g) 1 small meal 2 forks solid protein, 2 forks cooked veg- no raw yet Pt requests work note clearing her for all activity- will mail tomorrow. RTC in 5-6 weeks for 3mo postop visit. I spent a total of 30 minutes reviewing/updating records, examining the patient and counseling the patient on weight management as detailed above.
[2025-01-01 13:37] VITALS: BMI 29.9
== END 2025-01-01 13:55 | disposition home or self-care (01) ==
LOC: HO.HBS 13:43
PROVIDERS: PCP Family Medicine; Visit Provider Physician Assistant Surgical
DX: E66.3 Overweight (principal); Z68.29 Body mass index [BMI] 29.0-29.9, adult; Z90.3 Acquired absence of stomach [part of]; Z98.84 Bariatric surgery status
CPT/HCPCS: 99024

== ENCOUNTER → 2025-01-01 13:43 | Outpatient (BNVA) | payer OTHER, SELFPAY | PROVIDERS: PCP Family Medicine; Visit Provider Physician Assistant Surgical ==

== ENCOUNTER 2025-02-06 09:38 | Outpatient (AMB) | payer OTHER, SELFPAY ==
--- NOTE | 2025-02-06 09:06 | MHC.OFFVISWM ---
Intake Visit Reasons: (TELEPHONE) PO LSG 11/16/24 Allergies codeine Allergy (Intermediate, Verified 11/03/24 09:56) Vomiting lactose Allergy (Intermediate, Verified 11/03/24 09:56) Gastrointestinal Upset morphine Allergy (Intermediate, Verified 11/03/24 09:56) tongue swelling HPI Comments Details: This?is a?54?yo female who is s/p LSG 11/16/2024. Presents for 3mo post op visit. Weight at last visit on [] was [] pounds with a BMI of [], weight today is [] pounds, representing a [] pound weight loss with a BMI today of [].? No complaints of nausea, emesis, abdominal pain or reflux, or constipation. Present meal plan includes: Has not needed amlodipine or losartan, remain on hold. Has not texted Dr Mccoy since last visit. Present meal plan includes: Celebrate Rebuild shakes pt reports doing some salad and chicken at dinner taking MVI gets full very quickly so having trouble finishing all shakes hydration- has improved since last visit, gets about 50 oz or more Exercise routine includes: has an exercise bike, has been doing 3-4x/week 30 min PFS Medical History BMI 35.0-35.9,adult History of HPV infection Renal calculi Anxiety Depression DJD (degenerative joint disease) GERD (gastroesophageal reflux disease) Prediabetes Hyperlipidemia Sleep apnea treated with continuous positive airway pressure (CPAP) Hypertension Obesity Surgical History History of esophagogastroduodenoscopy (EGD) Hx of colonoscopy History of back surgery Family History Mother FH: kidney cancer Social History Household Members: Significant Other Housing: House Are you a primary personal care worker to a significant other at home: No Do you presently have visiting nurse or other home services: No Alcohol intake: current Alcohol intake frequency: does not drink Alcohol type: wine Patient Tobacco Use Status: Former Tobacco user Tobacco use type: Cigarette Cigarettes Per Day: 4 Years Smoked: 20 Second Hand Smoke Exposure: No Substance Use Type: Marijuana service: No
--- NOTE | 2025-02-06 09:15 | A.OFFVIS_ITS ---
VS Expanded 02/06/25 09:37 Height 5 ft 1 in Weight 157 lb BMI 29.7 Intake Visit Reasons: (TELEPHONE) PO LSG 11/16/24 Allergies codeine Allergy (Intermediate, Verified 11/03/24 09:56) Vomiting lactose Allergy (Intermediate, Verified 11/03/24 09:56) Gastrointestinal Upset morphine Allergy (Intermediate, Verified 11/03/24 09:56) tongue swelling Medication List - Last Reconciled 02/06/25 by TAN Hairston amlodipine 10 mg PO QAM atorvastatin 10 mg PO BEDTIME CPAP (CPAP Machine/Device) As directed docusate sodium 100 mg PO BID escitalopram oxalate 20 mg PO QAM inulin 2 grams PO DAILY losartan 25 mg PO QAM ondansetron 4 mg PO Q12H pantoprazole 40 mg PO DAILY sucralfate 10 mL PO BID HPI Comments Details: This?is a 54?yo female who is s/p LSG 11/16/2024. Presents for 3mo post op visit. Weight at last visit on 01/01/2025 was 158 pounds with a BMI of 29.9, weight today is 157 pounds, representing a 1 pound weight loss with a BMI today of 29.9.? No complaints of nausea, emesis, abdominal pain or reflux. Still deal ing with constipation- using Colace. Due to complete PPI/carafate. Returned to work. Remains off BP meds. Present meal plan includes: 1 Rebuild shake (20g) Half of 1 premade premier shake (15g) 1 elevation bar from [employer] (20g) 1 small meal 2 forks solid protein, 2 forks cooked veg- no raw yet -given at last visit, however has not been following exactly taking MVI Exercise routine includes: has an exercise bike, has been doing 3-4x/week 30 min planning to get outside more for exercise as weather improves [facility] Medical History BMI 35.0-35.9,adult History of HPV infection Renal calculi Anxiety Depression DJD (degenerative joint disease) GERD (gastroesophageal reflux disease) Prediabetes Hyperlipidemia Sleep apnea treated with continuous positive airway pressure (CPAP) Hypertension Obesity Surgical History History of esophagogastroduodenoscopy (EGD) Hx of colonoscopy History of back surgery Family History Mother FH: kidney cancer Social History Household Members: Significant Other Housing: House Are you a primary post acute care nurse practitioner to a significant other at home: No Do you presently have visiting nurse or other home services: No Alcohol intake: current Alcohol intake frequency: does not drink Alcohol type: wine Patient Tobacco Use Status: Former Tobacco user Tobacco use type: Cigarette Cigarettes Per Day: 4 Years Smoked: 20 Second Hand Smoke Exposure: No Substance Use Type: Marijuana service: No Telehealth Telehealth Telehealth Platform: Telephone Location of provider rendering services: other Location of patient: address on file Patient Identification confirmed using: Name, : Yes Telehealth method: voice only Patient verbally consented to treatment: Yes Patient verbally consented to billing insurance company: Yes Patient informed of any privacy concerns related to visit: Yes Minutes spent on Phone/Video with Pt.: 15 Assessment & Plan Assessment & Plan (1) Overweight: Code(s): E66.3 - Overweight Category: Medical (2) S/P laparoscopic sleeve gastrectomy: Code(s): Z98.84 - Bariatric surgery status Category: Surgical Plan Pt is happy with current pace of weight loss. Emphasized goal of 65g protein per day, ideally with mostly bars and shakes but pt prefers a little more flex ibility in meal plan and slower pace of weight loss. Will increase exercise this spring. Complete PPI/carafate, no refills needed. Ok for raw veg at 3mo postop. RTC 6 weeks, can order labs after next visit. Medications: New inulin 2 grams PO DAILY 90 tabs 3RF Refilled docusate sodium 100 mg PO BID 90 caps 0RF
[2025-02-06 09:37] VITALS: BMI 29.7
== END 2025-02-06 09:46 | disposition home or self-care (01) ==
LOC: HO.HBS 09:38
PROVIDERS: PCP Family Medicine; Visit Provider Physician Assistant Surgical
DX: E66.3 Overweight (principal); Z68.29 Body mass index [BMI] 29.0-29.9, adult; Z90.3 Acquired absence of stomach [part of]; Z98.84 Bariatric surgery status
CPT/HCPCS: 99024

== ENCOUNTER → 2025-02-06 09:38 | Outpatient (BNVA) | payer OTHER, SELFPAY | PROVIDERS: PCP Family Medicine; Visit Provider Physician Assistant Surgical ==